=== PATIENT | female | born 1960 | race Caucasian/White ===

== ENCOUNTER 2017-01-03 18:52 | Emergency (ER) | payer SELFPAY ==
[2017-01-03 19:58] VITALS: BP 180/86
--- NOTE | 2017-01-03 20:35 | UC ---
Throat Pain/Nasal Luiz HPI - HPI Summary HPI Summary: complaint of nausea and vomiting that started this morning sore throat and very difficult to swallow felt feverish and had chills today left ear pain intermittent headache took ibuprofen at 1600 with some relief many strep infections in the past with similiar symptoms couldn't take her blood pressure medication this morning d/t vomiting - History of Current Complaint Chief Complaint: UCGeneralIllness Stated Complaint: SORE THROAT Time Seen by Provider: 01/03/17 20:28 Hx Obtained From: Patient - Allergies/Home Medications Allergies/Adverse Reactions: Allergies Allergy/AdvReac Type Severity Reaction Status Date / Time Sulfa Drugs Allergy Hives Verified 01/03/17 19:58 Home Medications: Home Medications Apremilast [Otezla] 1 PO BID 01/03/17 [History] PMH/Surg Hx/FS Hx/Imm Hx Previously Healthy: Yes Endocrine History Of: Denies: Diabetes Cardiovascular History Of: Reports: Hypertension Denies: Congestive Heart Failure Cancer History Of: Denies: Breast Cancer - Surgical History Surgical History: Yes Surgery Procedure, Year, and Place: gallbladder 10/23/11. c section x2. d/C for miscarriage - - Family History Known Family History: Positive: None Negative: Cardiac Disease, Hypertension, Diabetes - Social History Occupation: Unemployed Lives: With Family Alcohol Use: None Substance Use Type: None Smoking Status (MU): Never Smoked Tobacco - Immunization History Most Recent Influenza Vaccination: 2014 Most Recent Tetanus Shot: UTD Review of Systems Constitutional: Fever, Chills Skin: Negative Eyes: Negative ENT: Sore Throat, Ear Ache Respiratory: Negative Cardiovascular: Negative Gastrointestinal: Vomiting Genitourinary: Negative Motor: Negative Neurovascular: Negative Musculoskeletal: Negative Neurological: Negative Psychological: Negative All Other Systems Reviewed And Are Negative: Yes Physical Exam Triage Information Reviewed: Yes Appearance: No Pain Distress, Well-Nourished Vital Signs: Initial Vital Signs Temp 99.4 F 01/03/17 19:52 Pulse 107 01/03/17 19:52 Resp 18 01/03/17 19:52 BP 180/86 01/03/17 19:52 Pulse Ox 96 01/03/17 19:52 Vital Signs Reviewed: Yes Eyes: Positive: Conjunctiva Clear ENT: Positive: Pharyngeal erythema, TMs normal. Negative: Nasal congestion, Nasal drainage Dental: Positive: Cervical Lymphadenopathy Respiratory: Positive: Lungs clear, Normal breath sounds, No respiratory distress Cardiovascular: Positive: RRR, No Murmur, Pulses Normal Abdomen Description: Positive: Nontender, Soft Bowel Sounds: Positive: Present Musculoskeletal: Positive: No Edema Neurological: Positive: Alert Psychological Exam: Normal Skin Exam: Normal Throat Pain/Nasal Course/Dx - Differential Dx/Diagnosis Differential Diagnosis/HQI/PQRI: Pharyngitis, Tonsillitis Provider Diagnoses: strep pharyngitis Discharge - Discharge Plan Condition: Stable Disposition: HOME Prescriptions: Penicillin VK TAB* [Penicillin VK 250 mg Tab*] 500 mg PO TID #30 tab Patient Education Materials: Strep Throat (ED) Referrals: No Primary Care Phys,NOPCP [Primary Care Provider] - [facility] REFERRAL [Outside] Additional Instructions: Your blood pressure is elevated. Please contact your primary care provider within 1 day -4 weeks for further evaluation. Please take antibiotic as directed Increase fluids and rest Take acetaminophen or ibuprofen for fever or pain Please review your discharge instructions. If your symptoms do not improve please call your primary care provider or return to urgent care.
[2017-01-03] MEDS ORDERED: Ibuprofen TAB* 600 MG PO ONE (21:00)
[2017-01-03] MEDS ORDERED: Penicillin VK TAB* 250 MG PO ONE (21:00)
== END 2017-01-03 21:06 | disposition home or self-care (01) ==
LOC: UCEAST 18:52
DX: J02.0 Streptococcal pharyngitis (principal); I10 Essential (primary) hypertension; Z90.49 Acquired absence of other specified parts of digestive tract; Z88.2 Allergy status to sulfonamides
CPT/HCPCS: 87651; 99212; A9270-GY; G0463

== ENCOUNTER 2017-03-16 20:19 | Emergency (ER) | payer OTHER ==
[2017-03-16 23:00] LABS: Hematocrit 43 % (35-47); Hemoglobin 14.1 g/dl (12.0-16.0); Mean Corpuscular HGB Conc 33 g/dl (31-36); Mean Corpuscular Hemoglobin 29 pg (27-31); Mean Corpuscular Volume 89 fL (80-97); Mean Platelet Volume 10 um3 (7.4-10.4); Red Blood Count 4.78 10^6/ul (4.0-5.4); Red Cell Distribution Width 14 % (10.5-15); White Blood Count 11.2 10^3/ul (3.5-10.8)
[2017-03-16 23:14] LABS: Albumin 4.2 g/dL (3.2-5.2); BUN/Creatinine Ratio 15.3 (8-20); Calcium 9.8 mg/dL (8.6-10.3); EGFR African American 88.3 (>60); EGFR Non-African American 68.7 (>60); Globulin 3.6 g/dL (2-4); Potassium 3.9 mmol/L (3.5-5.0); Total Bilirubin 0.5 mg/dL (0.2-1.0); Total Protein 7.8 g/dL (6.4-8.9)
--- NOTE | 2017-03-16 23:27 | ED ---
myron Hart Timothy, scribed for Cachorro Gillis MD on 03/16/17 at 2224 . Neurological HPI - HPI Summary HPI Summary: Ary Holden is a 56 yo female presenting to [facility] with left sided facial droop since 929 this morning. Pt states she saw her PCP yesterday for a sinus issues with left ear pain and watery left eye, and this morning a relative noticed her left side facial droop. Pt reports no other deficits, and per triage has even, steady gait, equal hand decision analyst. She states that she gets strep throat frequently , and currently c/o 3/10 left sided throat and neck pain. her MHx includes frequent strep throat, cholecystectomy, tonsilectomy, C-Seciton x2, HTN, GERD, plaque scoriasis. - History of Current Complaint Chief Complaint: EDNeurologicalDeficit Stated Complaint: LEFT SIDED FACIAL DROOP/UNABLE TO SHUT EYE Time Seen by Provider: 03/16/17 22:22 Hx Obtained From: Patient Onset/Duration: Sudden Onset, Started hours ago Timing: Constant Onset Severity: Moderate Current Severity: Moderate Neurological Deficit Location: Facial Pain Intensity: 3 Pain Scale Used: 0-10 Numeric Character: Other: - facial droop Associated Signs and Symptoms: Positive: Neck Pain/Stiffness - Allergy/Home Medications Allergies/Adverse Reactions: Allergies Allergy/AdvReac Type Severity Reaction Status Date / Time Sulfa Drugs Allergy Hives Verified 01/03/17 19:58 PMH/Surg Hx/FS Hx/Imm Hx Endocrine/Hematology History: Denies: Hx Diabetes Cardiovascular History: Reports: Hx Hypertension Denies: Hx Congestive Heart Failure GI History: Denies: Other GI Disorders - Cancer History Hx Chemotherapy: No Hx Radiation Therapy: No - Surgical History Surgery Procedure, Year, and Place: gallbladder 10/23/11. c section x2. d/C for miscarriage - Infectious Disease History: No Infectious Disease History: Denies: History Other Infectious Disease, Traveled Outside the [place] in Last 30 Days - Family History Known Family History: Positive: None Negative: Cardiac Disease, Hypertension, Diabetes - Social History Alcohol Use: None Substance Use Type: Reports: None Smoking Status (MU): Never Smoked Tobacco Review of Systems Constitutional: Negative Positive: Sore Throat Cardiovascular: Negative Respiratory: Negative Gastrointestinal: Negative Genitourinary: Negative Musculoskeletal: Negative Skin: Negative Neurological: Other - left side facial droop Psychological: Normal All Other Systems Reviewed And Are Negative: Yes Physical Exam Triage Information Reviewed: Yes Vital Signs On Initial Exam: Initial Vitals Temp Pulse Resp BP Pulse Ox 98.0 F 96 16 158/87 97 03/16/17 20:26 03/16/17 20:26 03/16/17 20:26 03/16/17 20:26 03/16/17 20:26 Vital Signs Reviewed: Yes Appearance: Positive: Well-Appearing, No Pain Distress Skin: Positive: Warm Head/Face: Positive: Other - lt facial paralysis Eyes: Positive: EOMI, ALFREDITO, Other: - unable to fully close lt eye ENT: Positive: Hearing grossly normal Neck: Positive: Supple Respiratory/Lung Sounds: Positive: Clear to Auscultation, Breath Sounds Present Cardiovascular: Positive: RRR Neurological: Positive: Alert, Oriented to Person Place, Time, Normal Gait, Facial Droop - lt, Speech Normal Psychiatric: Positive: Affect/Mood Appropriate - Ayden Coma Scale Coma Scale Total: 15 Diagnostics - Vital Signs Vital Signs Temp Pulse Resp BP Pulse Ox 03/16/17 22:05 99.1 F 89 16 146/81 98 03/16/17 20:26 98.0 F 96 16 158/87 97 - Laboratory Lab Results: Lab Results 03/16/17 03/16/17 Range/Units 22:55 22:55 WBC 11.2 H (3.5-10.8) 10^3/ul RBC 4.78 (4.0-5.4) 10^6/ul Hgb 14.1 (12.0-16.0) g/dl Hct 43 (35-47) % MCV 89 (80-97) fL MCH 29 (27-31) pg MCHC 33 (31-36) g/dl RDW 14 (10.5-15) % Plt Count 261 (150-450) 10^3/ul MPV 10 (7.4-10.4) um3 Neut % (Auto) 61.6 (38-83) % Lymph % (Auto) 28.8 (25-47) % [place] % (Auto) 6.8 (1-9) % Eos % (Auto) 1.5 (0-6) % Baso % (Auto) 1.3 (0-2) % Absolute Neuts (auto) 6.9 (1.5-7.7) 10^3/ul Absolute Lymphs (auto) 3.2 (1.0-4.8) 10^3/ul Absolute Monos (auto) 0.8 (0-0.8) 10^3/ul Absolute Eos (auto) 0.2 (0-0.6) 10^3/ul Absolute Basos (auto) 0.1 (0-0.2) 10^3/ul Absolute Nucleated RBC 0.01 10^3/ul Nucleated RBC % 0.1 Sodium 138 (133-145) mmol/L Potassium 3.9 (3.5-5.0) mmol/L Chloride 103 (101-111) mmol/L Carbon Dioxide 26 (22-32) mmol/L Anion Gap 9 (2-11) mmol/L BUN 13 (6-24) mg/dL Creatinine 0.85 (0.51-0.95) mg/dL Est GFR ( Amer) 88.3 (>60) Est GFR (Non-Af Amer) 68.7 (>60) BUN/Creatinine Ratio 15.3 (8-20) Glucose 115 H (70-100) mg/dL Calcium 9.8 (8.6-10.3) mg/dL Total Bilirubin 0.50 (0.2-1.0) mg/dL AST 40 H (13-39) U/L ALT 43 (7-52) U/L Alkaline Phosphatase 75 (34-104) U/L Total Protein 7.8 (6.4-8.9) g/dL Albumin 4.2 (3.2-5.2) g/dL Globulin 3.6 (2-4) g/dL Albumin/Globulin Ratio 1.2 (1-3) Result Diagrams: 03/16/17 22:55 03/16/17 22:55 Lab Statement: Any lab studies that have been ordered have been reviewed, and results considered in the medical decision making process. - CT brain CT Interpretation: No Acute Changes - IMPRESSION: No evidence of acute pathology CT Interpretation Completed By: Radiologist - Imaging Receiving Room Clerk NIH Scale - NIH Scale Level of Consciousness: Alert/Keenly Responsive Ask Patient the Month and His/Her Age: Both Correct Ask Pt to Open/Close Eyes and Spinning Lathe Operator Hydraulic/Release Non-Paretic Hand: Both Correctly Best Gaze (Only Horizontal Eye Movement): Normal Visual Field Testing: No Visual Loss Facial Paresis-Pt to Smile & Close Eyes or Grimace Symmetry: Partial Paralysis Motor Function - Right Arm: No Drift-Holds 10 Seconds Motor Function - Left Arm: No Drift-Holds 10 Seconds Motor Function - Right Leg: No Drift-Holds 10 Seconds Motor Function - Left Leg: No Drift-Holds 10 Seconds Limb Ataxia-Must be out of Proportion to Weakness Present: Absent Sensory (Use Pinprick to Test Arms/Legs/Trunk/Face): Pinprick Less on Affected Best Language (Describe Picture, Name Items): No Aphasia Dysarthria (Read Several Words): Normal Extinction and Inattention: No Abnormality Total Score: 3 Re-Evaluation - Re-Evaluation First Eval Re-Evaluation Time: 23:31 Change: Unchanged Comment: Discussed lab and imaging study results with Pt. She is agreable to be discharged. Course/Dx - Course Assessment/Plan: Bessie Holden is a 56 yo female presenting to [facility] with left sided facial droop and 3/10 sore throat andneck pain since 0930 this morning. Pt medicaiton list is reviewed this visit. Her CT Brain suggests no evidence of acute pathology. 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 - Differential Dx Differential Diagnoses Neuro: Positive: Kaye's Palsy - Diagnoses Provider Diagnoses: Kaye's palsy Discharge - Discharge Plan Condition: Stable Disposition: HOME Prescriptions: Artificial Tears* 15 ML BTL [Polyvinyl Alcohol 1.4% OPTH*] 1 drop RIGHT EYE Q2H #1 btl predniSONE TAB* [Deltasone TAB*] 40 mg PO DAILY #8 tab Patient Education Materials: Kaye Palsy (ED) Referrals: Frances Tyler MD [Primary Care Provider] - 2 Days Additional Instructions: Please follow up with your primary care physician regarding your visit to the emergency department today. Return to the emergency department with any new or recurring symptoms. The documentation as recorded by the myron gonzalez Timothy accurately reflects the service I personally performed and the decisions made by me, Cachorro Gillis MD.
[2017-03-16] MEDS ORDERED: predniSONE TAB* 20 MG PO ONE (23:29)
[2017-03-16 23:43] VITALS: BP 144/60
--- NOTE | 2017-03-17 07:19 | RAD ---
INDICATION: Left-sided facial droop COMPARISON: None. TECHNIQUE: Contiguous axial sections of the brain were obtained from the skull base to the vertex without contrast. FINDINGS: The ventricles, cisterns and sulci are within normal limits. The benitez-white matter differentiation is adequately maintained and there is no sulcal effacement. No significant focal abnormality or mass effect is present. There is no evidence for intracranial hemorrhage. No significant focal osseous abnormality is present. The visualized portion of the paranasal sinuses and mastoid air cells appear clear. IMPRESSION: Normal CT of the brain.
== END 2017-03-16 23:45 | disposition home or self-care (01) ==
LOC: ED 20:19
DX: G51.0 Bell's palsy (principal); J02.9 Acute pharyngitis, unspecified
CPT/HCPCS: 36415; 70450; 80053; 85025; 86618; 99283; J7512

== ENCOUNTER 2018-04-24 06:33 | Inpatient (IN) | payer OTHER ==
--- NOTE | 2018-04-16 13:51 | HP ---
HISTORY AND PHYSICAL: DATE OF ADMISSION/SURGERY: 04/24/18 DATE OF OFFICE VISIT: 04/16/18 SURGEON: Julieta Sheth MD * (DICTATED BY KAILEE CHRISTENSEN) PROCEDURE: Right total knee arthroplasty. CHIEF COMPLAINT: Right knee pain. HISTORY OF PRESENT ILLNESS: Ms. Holden is a 57-year-old female with complaints of right knee pain. She has failed conservative treatment and elected to proceed with a right total knee arthroplasty, which is scheduled for 04/24/[address] Sheth. PAST MEDICAL HISTORY: Psoriasis, hypertension, and gout. PAST SURGICAL HISTORY: x2, cholecystectomy, and tonsillectomy. CURRENT MEDICATIONS: 1. Pantoprazole 20 mg daily. 2. Lisinopril 20 mg daily. ALLERGIES: To SULFA. FAMILY HISTORY: Kidney and colon cancer, thyroid disease, heart disease, hypertension. SOCIAL HISTORY: She is a 57-year-old female, who lives with her partner. Does not smoke, use drugs or alcohol. REVIEW OF SYSTEMS: A complete 14-point review of systems was reviewed with the patient. It was all negative and noncontributory. She denies history of DVT, PE, hepatitis, HIV, or anesthesia problems. PHYSICAL EXAMINATION GENERAL: Well developed, well nourished, no acute distress. VITAL SIGNS: She stands 5 feet 2 inches tall, weighs 245 pounds. Blood pressure 144/88, heart rate 72. HEENT: Normocephalic, atraumatic. NECK: Supple. No palpable lymph nodes. PULMONARY: Lungs are clear to auscultation bilaterally. CARDIO: Regular rate and rhythm. Strong S1, S2. ABDOMEN: Soft, nontender, nondistended. MUSCULOSKELETAL: Right lower extremity, the skin is intact. There are no open wounds or abrasions. There is a moderate joint effusion. She has some tenderness over the medial and lateral joint line. Range of motion is 10 to 130 degrees of flexion with patellofemoral crepitus. 5/5 lower extremity strength. 2+ dorsalis pedis pulses and intact sensation. NEUROLOGICAL: She is alert and oriented x3. ASSESSMENT AND PLAN: Ms. Holden is a 57-year-old female with end-stage osteoarthritis of the right knee. She has failed conservative treatment and elected to proceed with a right total knee arthroplasty, which is scheduled for 04/24/[address] Sheth discussed the risks and benefits of the surgery at today's visit and all of her questions were answered. She will follow up with Dr. Sheth 2 weeks after the surgery. KAILEE CHRISTENSEN [id number]/[facility] #: [id number] AV
[~2018-04-24 06:33] MED LIST: Buffered Lidocaine 0.9% SYRIN* 5 ML/SYR SYRINGE INTRADERM ONE
--- OUTSIDE RECORDS SUMMARY | 2018-04-24 06:41 | XMS REPORT ---
:1960 External Reference #:[id number] Author Organization [employer] Address [address] [place] [address] [place] [address] Phone [phone] Care Team Providers Name Role Phone Frances Tyler MD Primary Care Physician Unavailable Payers Type Date Identification Numbers Payment Provider Subscriber Commercial Policy Number: [id number] [employer] Medicaid Ton Holden PayID: [id number] [address] [place] [id number] Problems Date Description Provider Status Onset: 02/14/2018 Localized, primary osteoarthritis Julieta Sheth M.D. Active Family History Date Family Member(s) Problem(s) Comments General Diabetes General Hypertension General Cancer General Rheumatoid Arthritis Social History Type Date Description Comments Lives With Spouse Occupation Retired ETOH Use Never used alcohol Smoking Patient has never smoked Exercise Type/Frequency Does not exercise Allergies, Adverse Reactions, Alerts Date Description Reaction Status Severity Comments 02/14/2018 Sulfa Antibiotics active hives Medications Medication Date Status Form Strength Qnty SIG Indications Ordering Provider Humira / Active PSKT 40mg/0.8ML inject 40 mg Unknown 0000 subcutaneous once every other week prefilled syringe Pantoprazole / Active Tablets 20mg 1 by mouth Unknown Sodium 0000 DR every day Lisinopril 0000/ Active Tablets 20mg 1 by mouth Unknown 0000 every day Ibuprofen 00/ Active Tablets 600mg prn pain Unknown 0000 Medications Administered in Office Medication Date Status Form Strength Qnty SIG Indications Ordering Provider Depomedrol Administered Injection Julieta 40MG Cesar Sheth M.D. Vital Signs Date Vital Result Comment 04/16/2018 Height 62 inches 5'2" Weight 245.00 lb Heart Rate 72 /min BP Systolic 144 mmHg BP Diastolic 88 mmHg BMI (Body Mass Index) 44.8 kg/m2 02/28/2018 Height 62 inches 5'2" Weight 242.00 lb BP Systolic 170 mmHg BP Diastolic 84 mmHg Body Temperature 98.3 F BMI (Body Mass Index) 44.3 kg/m2 02/14/2018 Height 62 inches 5'2" Weight 245.00 lb Heart Rate 80 /min BP Systolic 160 mmHg BP Diastolic 80 mmHg BMI (Body Mass Index) 44.8 kg/m2 Results Test Date Test Result H/L Range Note CBC Auto Diff 04/16/2018 White Blood Count 6.7 10^3/uL 3.5-10.8 1 Red Blood Count 4.54 10^6/uL 4.00-5.40 1 Hemoglobin 13.9 g/dL 12.0-16.0 1 Hematocrit 42 % 35-47 1 Mean Corpuscular Volume 92 fL 80-97 1 Mean Corpuscular Hemoglobin 31 pg 27-31 1 Mean Corpuscular HGB Conc 34 g/dL 31-36 1 Red Cell Distribution Width 14 % 10.5-15 1 Platelet Count 260 10^3/uL 150-450 1 Mean Platelet Volume 10.0 um3 7.4-10.4 1 Abs Neutrophils 3.3 10^3/uL 1.5-7.7 1 Abs Lymphocytes 2.7 10^3/uL 1.0-4.8 1 Abs Monocytes 0.5 10^3/uL 0-0.8 1 Abs Eosinophils 0.3 10^3/uL 0-0.6 1 Abs Basophils 0 10^3/uL 0-0.2 1 Abs Nucleated RBC 0 10^3/uL 1 Granulocyte % 49.1 % 38-83 1 Lymphocyte % 39.3 % 25-47 1 Monocyte % 7.3 % High 0-7 1 Eosinophil % 3.8 % 0-6 1 Basophil % 0.5 % 0-2 1 Nucleated Red Blood Cells % 0.1 1 Inr/Protime 04/16/2018 Inr 0.88 0.77-1.02 1 Laboratory test finding 04/16/2018 Partial Thrombo Time 32.0 seconds 26.0 -36.3 1, 2 PTT Comp Metabolic Panel 04/16/2018 Sodium 141 mmol/L 135-145 1 Potassium 4.3 mmol/L 3.5-5.0 1 Chloride 105 mmol/L 101-111 1 Co2 Carbon Dioxide 29 mmol/L 22-32 1 Anion Gap 7 mmol/L 2-11 1 Glucose 92 mg/dL 70-100 1 Blood Urea Nitrogen 12 mg/dL 6-24 1 Creatinine 0.66 mg/dL 0.51-0.95 1 BUN/Creatinine Ratio 18.2 8-20 1 Calcium 9.4 mg/dL 8.6-10.3 1 Total Protein 7.4 g/dL 6.4-8.9 1 Albumin 4.2 g/dL 3.2-5.2 1 Globulin 3.2 g/dL 2-4 1 Albumin/Globulin Ratio 1.3 1-3 1 Total Bilirubin 0.60 mg/dL 0.2-1.0 1 Alkaline Phosphatase 92 U/L 34-104 1 Alt 40 U/L 7-52 1 Ast 35 U/L 13-39 1 Egfr Non- 91.7 >60 1 Egfr 110.9 >60 1, 3 Urinalysis Profile 04/16/2018 Urine Color Yellow 1 Urine Appearance Clear 1 Urine Specific [place] 1.008 Low 1.010-1.030 1 Urine pH 6.0 5-9 1 Urine Urobilinogen Negative Negative 1 Urine Ketones Negative Negative 1 Urine Protein Negative Negative 1 Urine Leukocytes Negative Negative 1 Urine Blood 1+ Negative 1 Urine Nitrite Negative Negative 1 Urine Bilirubin Negative Negative 1 Urine Glucose Negative Negative 1 Urine White Blood Cell Trace(0-5/hpf) Absent 1 Urine Red Blood Cell Trace(0-2/hpf) Absent 1 Urine Bacteria 1+ Absent 1 Urine Squamous Epithelial Cell Present Absent 1 Type & Screen 04/16/2018 Patient Blood Type O Positive 1 Antibody Screen NEGATIVE 1 Urine Culture And Sensitivities 04/16/2018 Urine Culture SEE RESULT BELOW 1, 4 1 AA 04/24 2 AA 04/24 3 Because ethnic data is not always readily available, this report includes an eGFR for both -Americans and non- Americans. The National Kidney Disease Education Program (NKDEP) does not endorse the use of the MDRD equation for patients that are not between the ages of 18 and 70, are , have extremes of body size, muscle mass, or nutritional status, or are non- or non-. According to the National Kidney Foundation, irrespective of diagnosis, the stage of the disease is based on the level of kidney function: Stage Description GFR(mL/min/1.73 m(2)) 1 Kidney damage with normal or decreased GFR 90 2 Kidney damage with mild decrease in GFR 60-89 3 Moderate decrease in GFR 30-59 4 Severe decrease in GFR 15-29 5 Kidney failure <15 (or dialysis) 4 SEE RESULT BELOW Name: CANDYTON POPE : [address]: Julieta Sheth MD Acct: [id number] Unit: [id number] AGE: 57 Location: [facility] Re04/16/18 SEX: F Status: REG REF SPEC: [id number] JYOTHI: 04/16/18-1243 [facility] [address]: Julieta Sheth MD REQ: [id number] RECD: 04/16/18 STATUS: LESLY KIM DR: Frances Tyler MD _ SOURCE: URINE SPDESC: ORDERED: Urine Culture COMMENTS: YOAV 04/24 QUERIES: Urine Source: Clean Catch Procedure Result Reported Site Urine Culture Final 04/17/18- 1314 ML No Growth (<1,000 CFU/mL) * ML - Main Lab . END OF REPORT DEPARTMENT OF PATHOLOGY, [address] [place] [address] Marck Dunlap M.D. Director [facility] # [id number] Procedures Date CPT Code Description Status 04/10/2018 84778 Colonoscopy Flexible W/Biopsy Completed 04/10/2018 Colonoscopy Completed 02/14/2018 20866 Inject/Drain Joint/Bursa Major W/O US Completed Encounters Type Date Location Provider CPT E/M Dx Office Visit 02/28/2018 [facility] M.D. 31695 M17.11 1:15p Cornelia.M.ASidney M21.161 M25.561 M25.461 Office Visit 02/14/2018 9:30a [facility] Sheth M.D. 08234 M17.11 C.M.ASidney M21.161 M25.561 M25.461 Plan of Care Future Appointment(s):05/07/2018 9:00 am - Julieta Sheth M.D. at [facility]04/24/2018 8:30 am - Franki Kimball PA-C at [facility]04/24/2018 8:30 am - KAILEE Longo at [facility].04/24/2018 8:30 am - Julieta Sheth M.D. at [facility]..04/16/2018 - Julieta Sheth M.D.M17.11 Unilateral primary osteoarthritis, right kneeFollow up:Follow up: 2 weeks after cedssmnK28.161 Varus deformity, not elsewhere classified, right kneeM25.561 Pain in right kneeM25.461 Effusion, right knee
--- OUTSIDE RECORDS SUMMARY | 2018-04-24 06:41 | XMS REPORT ---
:1960 External Reference #:[id number] Author Organization [employer] Address [address] [place] [address] [place] [address] Phone [phone] Care Team Providers Name Role Phone Frances Tyler MD Primary Care Physician Unavailable Payers Type Date Identification Numbers Payment Provider Subscriber Commercial Policy Number: [id number] [employer] Medicaid Bessie Holden PayID: [id number] [address] [place] [address] Problems Date Description Provider Status Onset: 02/14/2018 [...] BMI (Body Mass Index) 44.8 kg/m2 Results Description No Information Procedures Date CPT Code Description Status 04/10/2018 Colonoscopy Completed 02/14/2018 88986 Inject/Drain Joint/Bursa Major W/O US Completed Encounters Type Date Location Provider CPT E/M Dx Office Visit 02/28/2018 [facility] M.D. 59265 M17.11 1:15p [facility] M21.161 M25.561 M25.461 Office Visit 02/14/2018 9:30a [facility] M.D. 06948 M17.11 [facility] M21.161 M25.561 M25.461 Plan of Care Future Appointment(s):05/07/2018 9:00 am - Julieta Sheth M.D. at [facility]04/24/2018 8:30 am - Franki Kimball PA-C at [facility]04/24/2018 8:30 am - KAILEE Longo at [facility]04/24/2018 8:30 am - Julieta Sheth M.D. at [facility]04/16/2018 - Julieta Sheth M.D.M17.11 Unilateral primary osteoarthritis, right kneeFollow up:Follow up: 2 weeks after weyeajoY47.161 Varus deformity, not elsewhere classified, right kneeM25.561 Pain in right kneeM25.461 Effusion, right knee
--- OUTSIDE RECORDS SUMMARY | 2018-04-24 06:42 | XMS REPORT ---
:1960 External Reference #:[id number] Author Organization [facility] Address [address] [place] [address] Phone [phone] Care Team Providers Name Role Phone Frances Tyler M.D. 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 Primary Care Physician Unavailable Payers Type Date Identification Numbers Payment Provider Subscriber Medicaid Effective: Policy Number: [id number] [facility] Ton Holden 2008 PayID: [id number] [address] [address] [place] [address] Problems Date Description Provider Status Onset: 04/24/2008 History of polyp of colon Josh Spangler M.D. Active Onset: 09/08/2011 Essential hypertension Josh Spangler M.D. Active Onset: 09/08/2011 Hyperlipidemia Josh Spangler M.D. Active Onset: 09/08/2011 Obesity Josh Spangler M.D. Active Onset: 09/08/2011 Liver function tests abnormal Josh Spangler M.D. Active Onset: 02/18/2015 Impaired fasting glycaemia Frances Tyler M.D. Active Onset: 07/27/2015 Gastroesophageal reflux disease Frances Tyler M.D. Active Onset: 06/07/2017 Localized, primary osteoarthritis Frances Tyler M.D. Active Onset: 03/06/2018 Non-alcoholic fatty liver Frances Tyler M.D. Active Onset: 04/04/2018 Psoriasis Frances Tyler M.D. Active Onset: 03/14/2018 Nonalcoholic steatohepatitis Frances Tyler M.D. Active Onset: 08/22/2012 Acute upper respiratory infection Dick Torres M.D. Resolved Resolved: 02/18/2015 Onset: 09/08/2011 Leukocytosis Josh Spangler M.D. Resolved Resolved: 07/27/2015 Family History Date Family Member(s) Problem(s) Comments General sister of colon cancer; diabetes mellitus on her mother's side; maternal grandmother with osteoporosisgilbert disease Father Cancer face/tongue Father due to Cancer () Mother Hypothyroidism Mother Cancer Renal Mother Diabetes Mellitus, II First Brother Chronic Obstructive Pulmonary Disease (COPD) First Brother Hypertension Second Brother Hypertension Second Brother Diabetes Mellitus, II First Sister due to Colon Cancer () - 44 Second Sister Cirrhosis Second Sister Diabetes Mellitus, II Second Sister Venous Insuffiency Third Sister No Current Problems Fourth Sister Hypertension Social History Type Date Description Comments Living Situation Lives with male partner Diet irregular; occasional skips meals; eats easy meals 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 please provide size to patient that fits Clobetasol 11/25/ Active Cream 0.05% 60gm apply to L40.8 Frances Propionate 2017 affected [place], areas M.D. twice a day as needed Lisinopril 07/27/ Active Tablets 20mg 30tab 1 by I10 Frances 2015 s mouth [place], every day M.D. Pantoprazole 03/06/ Active Tablets DR 20mg 30tab 1 by K21.9 Frances Sodium 2014 s mouth [place], every day M.D. Ibuprofen 07/24/ Active Tablets 600mg 60tab take 1 M25.569 Frances 2013 s tablet by [place], mouth M.D. every 6 hours if needed with food Humira 00/00/ Active PSKT 40mg/0.8M inject sq Unknown 0000 L every other week Penicillin V 01/25/ Hx Tablets 500mg 21tab three J02.9 Katina Potassium 2018 - s times a Caryn, 02/05/ day [employer] 2017 Loratadine-D 03/15/ Hx Tablets ER 10-240mg 30tab 1 tab at H69.92 Frances 24HR 2017 - 24HR s bedtime [place], 02/05/ M.D. 2017 Clobetasol 11/17/ Hx Foam 0.05% 50gm apply to L40.8 Frances Propionate 2017 - scalp [place], 11/25/ twice M.D. 2016 daily until clear then as needed Azithromycin 10/26/ Hx Tablets 250mg 12tab take 2 J06.9 Azalea 2017 - s tablets Erin, 11/09/ by mouth [employer] 2016 x 3d then take 1 tablet daily for next 6 days Cephalexin 09/12/ Hx Capsules 500mg 30cap 1 by L03.032 Alicia Lisa 2015 - s mouth Tamra, 10/26/ three M.D. 2017 times daily . Nystatin 08/09/ Hx Cream [id number] 30gm use as 112.3 Frances 2015 - t/GM directed [place], 09/12/ twice a M.D. 2015 day as needed Otezla 07/28/ Hx Tablets 30mg 1 pom bid Unknown 2015 - 2017 Ciprofloxacin 06/03/ Hx Tablets 250mg 14tab 1 tab by N39.0 Azalea HCL 2016 - s mouth Erin, 07/27/ twice a [employer] 2015 day x 7 days Cheratussin ac 11/19/ Hx Syrup 100-10mg/ 120ml 1-2 R05 Azalea 2016 - 5ML teaspoon Erin, 01/24/ every 4 [employer] 2016 hours as needed Azithromycin 11/19/ Hx Tablets 250mg 6tabs take 2 R05 Azalea 2015 - tablets Erin, 01/24/ by mouth [employer] 2015 today then take 1 tablet daily for next 4 days Clobetasol 10/26/ Hx Foam 0.05% 100gm apply to L40.8 Frances Propionate 2016 - scalp [place], Emollient 09/12/ twice a M.D. 2015 day until clears Clobetasol 03/06/ Hx Foam 0.05% 50gm apply to L40.8 Betina Propionate 2014 - scalp Brown, [employer] 09/12/ twice 2016 daily until clear then as needed Clobetasol 03/06/ Hx Cream 0.05% 60gm apply L40.8 Frances Propionate 2014 - thin [place], 10/26/ layer to M.D. 2016 affected area twice a day until clear and as needed Physical 02/18/ Hx evaluate 719.46 Frances Therapy 2014 - and treat [place], 04/16/ r knee M.D. 2014 pain Nystatin 01/22/ Hx Cream [id number] 30gm use as 112.3 Frances 2015 - t/GM directed [place], 11/19/ twice a M.D. 2016 day as needed Fluconazole 01/22/ Hx Tablets 150mg 2tabs one tab 112.3 Frances 2014 - by mouth [place], 02/18/ once, january M.D. 2014 repeat in five days Tramadol HCL 01/22/ Hx Tablets 50mg 60tab 1 tab by 719.46 Frances 2014 - s mouth [place], 04/16/ every 8 M.D. 2015 hours as needed Robitussin A-C 08/22/ Hx 6Floz 1-2 tsp Dick Chavez 2011 - q4hrs prn [place], 10/10/ cough M.D. 2012 Lisinopril 08/03/ Hx Tablets 10mg 30tab take 1 I10 Josh Torres 2010 - s tablet [place], 07/27/ once M.D. 2016 daily Azithromycin 11/05/ Hx Tablets 250mg 6tabs take 2 466.0 Azalea 2010 - tablets Erin, 08/03/ by mouth [employer] 2010 today then take 1 tablet daily for next 4 days Robitussin A-C 11/05/ Hx 120ml 1-2 tsp 466.0 Azalea 2010 - po q4h Erin, 08/03/ prn cough [employer] 2010 Augmentin 03/31/ Hx Tablets 875mg 20tab 1 po bid Edilberto Ron 2008 - s with food [place], 11/05/ M.D. 2010 Cortisporin Hx Suspension 1% Otic 1Bott 3-5 gtts Edilberto Ron 2009 - le rt ear [place], 11/05/ qid M.D. 2010 Immunizations CPT Code Status Date Vaccine Lot # [id number] Given 06/07/2017 Influenza Vac, Quadrivalent, Slit Virus, Im [id number] 70744 Given 07/27/2016 Influenza Vac, Quadrivalent, Slit Virus, Im [id number] 24531 Given 07/27/2015 Influenza Vac, Quadrivalent, Slit Virus, Im [id number] Given 07/24/2014 DO Not Use Split Influenza Virus Vaccine [id number] Given 10/10/2012 DO Not Use Split Influenza Virus Vaccine [id number] 80037 Given 08/03/2011 DO Not Use Split Influenza Virus Vaccine [id number] 21100 Given 04/24/2008 Tdap Tetanus, W Pertussis [id number] Vital Signs Date Vital Result Comment 04/04/2018 BP Systolic 136 mmHg BP Diastolic 80 mmHg Heart Rate 82 /min Body Temperature 97.5 F Respiratory Rate 16 /min Height 62 inches 5'2" meaured Weight 242.00 lb BMI (Body Mass Index) 44.3 kg/m2 03/14/2018 BP Systolic 130 mmHg BP Diastolic 82 mmHg Heart Rate 72 /min Body Temperature 97.9 F Respiratory Rate 16 /min Height 62 inches 5'2" Weight 242.00 lb BMI (Body Mass Index) 44.3 kg/m2 02/06/2018 BP Systolic 146 mmHg BP Diastolic 94 mmHg Heart Rate 90 /min Body Temperature 98.1 F Height 62 inches 5'2" Weight 243.00 lb BMI (Body Mass Index) 44.4 kg/m2 10/19/2017 BP Systolic 134 mmHg BP Diastolic 88 mmHg Heart Rate 96 /min Body Temperature 101.4 F Height 62 inches 5'2" Weight 237.25 lb BMI (Body Mass Index) 43.4 kg/m2 06/07/2017 BP Systolic 130 mmHg BP Diastolic 78 mmHg Heart Rate 76 /min Body Temperature 98.0 F Respiratory Rate 18 /min Height 62 inches 5'2" Weight 222.00 lb BMI (Body Mass Index) 40.6 kg/m2 03/22/2017 BP Systolic 170 mmHg BP Diastolic 100 mmHg BP Systolic Recheck 150 mmHg BP Diastolic Recheck 80 mmHg Heart Rate 84 /min Body Temperature 98.1 F Height 62 inches 5'2" Weight 231.38 lb BMI (Body Mass Index) 42.3 kg/m2 03/15/2017 BP Systolic 142 mmHg BP Diastolic 80 mmHg Heart Rate 76 /min Body Temperature 98.6 F Respiratory Rate 18 /min Height 62 inches 5'2" Weight 233.38 lb BMI (Body Mass Index) 42.7 kg/m2 01/25/2017 BP Systolic 132 mmHg BP Diastolic 86 mmHg Heart Rate 78 /min Body Temperature 97.7 F Respiratory Rate 16 /min Height 62 inches 5'2" Weight 231.38 lb BMI (Body Mass Index) 42.3 kg/m2 10/26/2016 BP Systolic 122 mmHg BP Diastolic 64 mmHg Heart Rate 84 /min Body Temperature 98.1 F Respiratory Rate 16 /min Height 62 inches 5'2" Weight 231.00 lb BMI (Body Mass Index) 42.2 kg/m2 09/12/2016 BP Systolic 158 mmHg BP Diastolic 88 mmHg Heart Rate 60 /min Body Temperature 98.4 F Respiratory Rate 16 /min Height 62 inches 5'2" Weight 235.00 lb BMI (Body Mass Index) 43.0 kg/m2 07/27/2016 BP Systolic 152 mmHg BP Diastolic 90 mmHg Heart Rate 84 /min Body Temperature 98.2 F Respiratory Rate 18 /min Height 62 inches 5'2" Weight 236.00 lb BMI (Body Mass Index) 43.2 kg/m2 06/03/2016 BP Systolic 120 mmHg BP Diastolic 80 mmHg Heart Rate 80 /min Body Temperature 98.6 F Respiratory Rate 18 /min Height 62 inches 5'2" Weight 232.00 lb BMI (Body Mass Index) 42.4 kg/m2 01/25/2016 BP Systolic 136 mmHg BP Diastolic 80 mmHg Heart Rate 72 /min Body Temperature 98.1 F Respiratory Rate 16 /min Height 62 inches 5'2" Weight 237.00 lb BMI (Body Mass Index) 43.3 kg/m2 11/19/2015 BP Systolic 140 mmHg BP Diastolic 80 mmHg Heart Rate 62 /min Body Temperature 97.7 F Respiratory Rate 20 /min Height 62 inches 5'2" Weight 237.00 lb BMI (Body Mass Index) 43.3 kg/m2 07/27/2015 BP Systolic 130 mmHg BP Diastolic 80 mmHg Heart Rate 80 /min Body Temperature 97.7 F Respiratory Rate 16 /min Height 62 inches 5'2" Weight 238.00 lb BMI (Body Mass Index) 43.5 kg/m2 04/16/2015 BP Systolic 120 mmHg BP Diastolic 84 mmHg Heart Rate 72 /min Body Temperature 98.0 F Respiratory Rate 16 /min Height 62 inches 5'2" Weight 232.00 lb BMI (Body Mass Index) 42.4 kg/m2 03/06/2015 BP Systolic 136 mmHg BP Diastolic 80 mmHg Heart Rate 76 /min Body Temperature 97.8 F Respiratory Rate 18 /min Height 62 inches 5'2" Weight 235.00 lb BMI (Body Mass Index) 43.0 kg/m2 02/18/2015 BP Systolic 142 mmHg BP Diastolic 82 mmHg Heart Rate 72 /min Body Temperature 97.8 F Respiratory Rate 16 /min Height 62 inches 5'2" Weight 235.38 lb BMI (Body Mass Index) 43.0 kg/m2 01/22/2015 BP Systolic 128 mmHg BP Diastolic 68 mmHg Heart Rate 78 /min Body Temperature 97.7 F Respiratory Rate 18 /min Height 62 inches 5'2" Weight 239.00 lb BMI (Body Mass Index) 43.7 kg/m2 07/24/2014 BP Systolic 120 mmHg BP Diastolic 66 mmHg Heart Rate 78 /min Body Temperature 98.0 F Respiratory Rate 16 /min Height 62 inches 5'2" Weight 231.00 lb BMI (Body Mass Index) 42.2 kg/m2 01/07/2013 BP Systolic 126 mmHg BP Diastolic 90 mmHg Heart Rate 72 /min Body Temperature 98.3 F Respiratory Rate 16 /min Height 62 inches 5'2" Weight 222.00 lb BMI (Body Mass Index) 40.6 kg/m2 11/27/2012 BP Systolic 110 mmHg BP Diastolic 60 mmHg Heart Rate 76 /min Body Temperature 98.6 F Height 62 inches 5'2" Weight 214.00 lb BMI (Body Mass Index) 39.1 kg/m2 10/10/2012 BP Systolic 130 mmHg BP Diastolic 80 mmHg Heart Rate 80 /min Body Temperature 97.5 F Respiratory Rate 16 /min Height 62 inches 5'2" Weight 214.00 lb BMI (Body Mass Index) 39.1 kg/m2 08/22/2012 BP Systolic 130 mmHg BP Diastolic 82 mmHg Heart Rate 84 /min Body Temperature 99.5 F Height 62 inches 5'2" Weight 210.00 lb BMI (Body Mass Index) 38.4 kg/m2 09/08/2011 BP Systolic 156 mmHg BP Diastolic 80 mmHg Heart Rate 76 /min Body Temperature 97.1 F Respiratory Rate 20 /min Height 62 inches 5'2" Weight 226.00 lb BMI (Body Mass Index) 41.3 kg/m2 08/03/2011 BP Systolic 146 mmHg BP Diastolic 100 mmHg Heart Rate 84 /min Height 62 inches 5'2" Weight 229.00 lb BMI (Body Mass Index) 41.9 kg/m2 11/05/2010 BP Systolic 136 mmHg BP Diastolic 98 mmHg Heart Rate 96 /min Body Temperature 101.3 F Respiratory Rate 20 /min O2 % BldC Oximetry 94 % Height 62 inches 5'2" Weight 222.00 lb BMI (Body Mass Index) 40.6 kg/m2 03/31/2009 BP Systolic 136 mmHg BP Diastolic 100 mmHg Heart Rate 90 /min Body Temperature 100.1 F Height 62 inches 5'2" Weight 218.00 lb BMI (Body Mass Index) 39.9 kg/m2 06/25/2008 BP Systolic 130 mmHg BP Diastolic 84 mmHg Height 62 inches 5'2" Weight 210.00 lb BMI (Body Mass Index) 38.4 kg/m2 06/09/2008 BP Systolic 148 mmHg BP Diastolic 100 mmHg Heart Rate 64 /min Height 62 inches 5'2" Weight 212.00 lb BMI (Body Mass Index) 38.8 kg/m2 04/24/2008 BP Systolic 130 mmHg BP Diastolic 88 mmHg Heart Rate 76 /min Body Temperature 97.9 F Respiratory Rate 16 /min Height 62 inches 5'2" Weight 210.00 lb BMI (Body Mass Index) 38.4 kg/m2 Results Test Date Test Result H/L Range Note Comprehensive Metabolic Prof 03/14/2018 Sodium 138 mEq/L 134-149 Potassium 4.9 mEq/L 3.6-5.5 Chloride 101 mEq/L 94-112 Carbon Dioxide 28 mEq/L 21-32 Glucose 102 mg/dL 70-105 BUN 16 mg/dL 6-26 Creatinine 0.6 mg/dL 0.6-1.4 BUN/Creat Ratio 26.7 CALC 8.0-36.0 Calcium 9.6 mg/dL 8.6-10.2 Total Protein 7.8 g/dL 6.4-8.3 Albumin 4.3 g/dL 3.8-5.5 Globulin 3.5 g/dL 2.0-4.8 A/G Ratio 1.2 CALC 0.6-2.3 Alk. Phosphatase 88 U/L 30-110 Alt (SGPT) 54 U/L High 7-35 Ast (Sgot) 45 U/L High 5-34 Total Bilirubin 0.4 mg/dL 0.2-1.3 GFR Non- >60 ml/min/1.73m^ >=60 GFR >60 ml/min/1.73m^ >=60 Laboratory test finding 03/14/2018 Hemoglobin A1c (Fma) 6.3 % High 4.1- 5.7 Comprehensive Metabolic Prof 02/05/2018 Sodium 138 mEq/L 134-149 Potassium 4.5 mEq/L 3.6-5.5 Chloride 106 mEq/L 94-112 Carbon Dioxide 23 mEq/L 21-32 Glucose 141 mg/dL High 70-105 1 BUN 13 mg/dL 6-26 Creatinine 0.6 mg/dL 0.6-1.4 BUN/Creat Ratio 21.7 CALC 8.0-36.0 Calcium 9.0 mg/dL 8.6-10.2 Total Protein 7.2 g/dL 6.4-8.3 Albumin 4.1 g/dL 3.8-5.5 Globulin 3.1 g/dL 2.0-4.8 A/G Ratio 1.3 CALC 0.6-2.3 Alk. Phosphatase 79 U/L 30-110 Alt (SGPT) 64 U/L High 7-35 Ast (Sgot) 58 U/L High 5-34 Total Bilirubin 0.6 mg/dL 0.2-1.3 GFR Non- >60 ml/min/1.73m^ >=60 GFR >60 ml/min/1.73m^ >=60 Lipid Profile 02/05/2018 Cholesterol 213 mg/dL High 120-200 Triglycerides 129 mg/dL 30-200 HDL Cholesterol 61 mg/dL 30-85 LDL (Calculated) 126 CALC 0-129 VLDL Cholesterol 26 mg/dL 0-50 HDL Risk Factor 3.5 CALC 0.0-4.4 Laboratory test finding 02/05/2018 Free T4 0.90 ng/dL 0.75-1.54 TSH 1.97 mIU/L 0.50-6.00 CBC Electronic Fma 02/05/2018 WBC 7.4 x10^3/UL 4.0-10.0 RBC 4.63 x10^6/UL 3.93-6.00 HGB 14.1 g/dL 12.0-17.0 HCT 42 % 35-50 MCV 91.6 fL 80.0-95.0 MCH 30.5 pg 25.6-32.2 MCHC 33.3 g/dL 32.2-36.0 RDW-CV 12.6 % 11.6-14.4 PLT 236 x10^3/UL 163-400 MPV 11.5 fL 9.4-12.4 [place]berly# 3.81 x10^3/UL 1.56-6.13 Lymph# 2.68 x10^3/UL 1.18-3.74 Cole# 0.65 x10^3/UL 0.24-0.82 Eos # 0.2 x10^3/UL 0.0-0.5 Baso # 0.04 x10^3/UL 0.01-0.08 [place]% 51.5 % 34.0-70.0 Lymph % 36.2 % 20.0-52.0 Cole% 8.8 % 5.0-12.0 Eos% 2.7 % 0.7-7.0 Baso% 0.5 % 0.1-1.2 Laboratory test finding 02/05/2018 Hemoglobin A1c (Fma) 6.1 % High 4.1- 5.7 Laboratory test finding 10/19/2017 Quickstrep positive Negative CBC Auto Diff 03/16/2017 White Blood Count 11.2 10^3/uL High 3.5-10.8 Red Blood Count 4.78 10^6/uL 4.0-5.4 Hemoglobin 14.1 g/dL 12.0-16.0 Hematocrit 43 % 35-47 Mean Corpuscular Volume 89 fL 80-97 Mean Corpuscular Hemoglobin 29 pg 27-31 Mean Corpuscular HGB Conc 33 g/dL 31-36 Red Cell Distribution Width 14 % 10.5-15 Platelet Count 261 10^3/uL 150-450 Mean Platelet Volume 10 um3 7.4-10.4 Abs Neutrophils 6.9 10^3/uL 1.5-7.7 Abs Lymphocytes 3.2 10^3/uL 1.0-4.8 Abs Monocytes 0.8 10^3/uL 0-0.8 Abs Eosinophils 0.2 10^3/uL 0-0.6 Abs Basophils 0.1 10^3/uL 0-0.2 Abs Nucleated RBC 0.01 10^3/uL Granulocyte % 61.6 % 38-83 Lymphocyte % 28.8 % 25-47 Monocyte % 6.8 % 1-9 Eosinophil % 1.5 % 0-6 Basophil % 1.3 % 0-2 Nucleated Red Blood Cells % 0.1 Comp Metabolic Panel 03/16/2017 Sodium 138 mmol/L 133-145 Potassium 3.9 mmol/L 3.5-5.0 Chloride 103 mmol/L 101-111 Co2 Carbon Dioxide 26 mmol/L 22-32 Anion Gap 9 mmol/L 2-11 Glucose 115 mg/dL High 70-100 Blood Urea Nitrogen 13 mg/dL 6-24 Creatinine 0.85 mg/dL 0.51-0.95 BUN/Creatinine Ratio 15.3 8-20 Calcium 9.8 mg/dL 8.6-10.3 Total Protein 7.8 g/dL 6.4-8.9 Albumin 4.2 g/dL 3.2-5.2 Globulin 3.6 g/dL 2-4 Albumin/Globulin Ratio 1.2 1-3 Total Bilirubin 0.50 mg/dL 0.2-1.0 Alkaline Phosphatase 75 U/L 34-104 Alt 43 U/L 7-52 Ast 40 U/L High 13-39 Egfr Non- 68.7 >60 Egfr 88.3 >60 2 Laboratory test finding 03/16/2017 Lyme Disease Serology Negative Negative 3 Laboratory test finding 01/25/2017 TSH 1.31 mIU/L 0.50-6.00 Complete Blood Count 01/25/2017 WBC 7.8 x10^3/UL 3.6-9.6 RBC 4.65 x10^6/UL 3.90-5.70 HGB 14.0 g/dL 12.1-17.2 HCT 42 % 36-50 MCV 91.0 fL 82.2-97.4 MCH 30.2 pg 27.6-33.3 MCHC 33.3 g/dL 33.0-35.5 RDW 14.1 % High 11.6-13.7 PLT 341 x10^3/UL 150-400 MPV 8.2 fL 7.4-10.4 Gran # 4.7 x10^3/UL 1.5-7.2 Lymph# 2.7 x10^3/UL 0.7-4.9 Cole# 0.4 x10^3/UL 0.1-0.9 Gran % 59.3 % 42.2-75.2 Lymph % 35.5 % 20.5-51.1 Cole% 5.2 % 1.7-9.3 Lipid Profile 01/25/2017 Cholesterol 214 mg/dL High 120-200 Triglycerides 146 mg/dL 30-200 HDL Cholesterol 63 mg/dL 30-85 LDL (Calculated) 122 CALC 0-129 VLDL Cholesterol 29 mg/dL 0-50 HDL Risk Factor 3.4 CALC 0.0-4.4 Comprehensive Metabolic Prof 01/25/2017 Sodium 138 mEq/L 134-149 Potassium 4.8 mEq/L 3.6-5.5 Chloride 103 mEq/L 94-112 Carbon Dioxide 29 mEq/L 21-32 Glucose 118 mg/dL High 70-105 4 BUN 10 mg/dL 6-26 Creatinine 0.7 mg/dL 0.6-1.4 BUN/Creat Ratio 14.3 CALC 8.0-36.0 Calcium 9.7 mg/dL 8.6-10.2 Total Protein 7.3 g/dL 6.4-8.3 Albumin 4.2 g/dL 3.8-5.5 Globulin 3.1 g/dL 2.0-4.8 A/G Ratio 1.4 CALC 0.6-2.3 Alk. Phosphatase 103 U/L 30-110 Alt (SGPT) 38 U/L High 7-35 5 Ast (Sgot) 34 U/L 5-34 Total Bilirubin 0.3 mg/dL 0.2-1.3 GFR Non- >60 ml/min/1.73m^ >=60 GFR >60 ml/min/1.73m^ >=60 Laboratory test finding 01/25/2017 Hemoglobin A1c (Fma) 6.2 % High 4.1- 5.7 Laboratory test finding 09/13/2016 Antinuclear Negative 6, 7 Antibodies, Ifa Laboratory test finding 09/13/2016 Uric Acid 4.8 mg/dL 2.5-9.2 Comprehensive Metabolic 09/13/2016 Sodium 136 mEq/L 134-149 Prof Potassium 5.2 mEq/L 3.6-5.5 Chloride 95 mEq/L 94-112 Carbon Dioxide 26 mEq/L 21-32 Glucose 100 mg/dL 70-105 BUN 14 mg/dL 6-26 Creatinine 0.8 mg/dL 0.6-1.4 BUN/Creat Ratio 17.5 CALC 8.0-36.0 Calcium 9.6 mg/dL 8.6-10.2 Total Protein 7.6 g/dL 6.4-8.3 Albumin 4.3 g/dL 3.8-5.5 Globulin 3.3 g/dL 2.0-4.8 A/G Ratio 1.3 CALC 0.6-2.3 Alk. Phosphatase 80 U/L 30-110 Alt (SGPT) 34 U/L 7-35 Ast (Sgot) 31 U/L 5-34 Total Bilirubin 0.4 mg/dL 0.2-1.3 GFR Non- >60 ml/min/1.73m^ >=60 GFR >60 ml/min/1.73m^ >=60 Complete Blood Count 09/13/2016 WBC 7.5 x10^3/UL 3.6-9.6 RBC 4.76 x10^6/UL 3.90-5.70 HGB 14.3 g/dL 12.1-17.2 HCT 43 % 36-50 MCV 91.0 fL 82.2-97.4 MCH 30.1 pg 27.6-33.3 MCHC 33.1 g/dL 33.0-35.5 RDW 14.2 % High 11.6-13.7 PLT 289 x10^3/UL 150-400 MPV 8.0 fL 7.4-10.4 Gran # 4.4 x10^3/UL 1.5-7.2 Lymph# 2.7 x10^3/UL 0.7-4.9 Cole# 0.4 x10^3/UL 0.1-0.9 Gran % 58.4 % 42.2-75.2 Lymph % 36.0 % 20.5-51.1 Cole% 5.6 % 1.7-9.3 Laboratory test finding 09/13/2016 Sedimentation Rate 37 mm Quantiferon Gold TB 08/23/2016 M tuberculosis by Negative Negative 8 Quantiferon TB Ag minus Nil Result 0 IU/mL TB Mitogen minus Nil Result > 10.00 IU/mL TB Nil Result 0.03 IU/mL 9 Laboratory test finding 08/23/2016 Hepatitis C Antibody Nonreactive Nonreactive Hepatitis B Core Total Ab Negative Negative 10 Hepatitis B Luis AB 08/23/2016 Hepatitis B Surface AB Nonreactive Nonreactive Titer Hep B Surf AB Level < 3.10 mIU/mL <12 11 Laboratory test finding 08/23/2016 Hepatitis B Surface Ag Nonreactive Nonreactive CBC Auto Diff 08/23/2016 White Blood Count 8.4 10^3/uL 3.5-10.8 Red Blood Count 4.99 10^6/uL 4.0-5.4 Hemoglobin 14.8 g/dL 12.0-16.0 Hematocrit 45 % 35-47 Mean Corpuscular Volume 89 fL 80-97 Mean Corpuscular Hemoglobin 30 pg 27-31 Mean Corpuscular HGB Conc 33 g/dL 31-36 Red Cell Distribution Width 13 % 10.5-15 Platelet Count 290 10^3/uL 150-450 Mean Platelet Volume 10 um3 7.4-10.4 Abs Neutrophils 5.1 10^3/uL 1.5-7.7 Abs Lymphocytes 2.5 10^3/uL 1.0-4.8 Abs Monocytes 0.7 10^3/uL 0-0.8 Abs Eosinophils 0.1 10^3/uL 0-0.6 Abs Basophils 0 10^3/uL 0-0.2 Abs Nucleated RBC 0 10^3/uL Granulocyte % 60.2 % 38-83 Lymphocyte % 29.5 % 25-47 Monocyte % 8.0 % 1-9 Eosinophil % 1.7 % 0-6 Basophil % 0.6 % 0-2 Nucleated Red Blood Cells % 0 Basic Metabolic Panel 08/23/2016 Sodium 134 mmol/L 133-145 Potassium 4.7 mmol/L 3.5-5.0 Chloride 101 mmol/L 101-111 Co2 Carbon Dioxide 26 mmol/L 22-32 Anion Gap 7 mmol/L 2-11 Glucose 98 mg/dL 70-100 Blood Urea Nitrogen 12 mg/dL 6-24 Creatinine 0.72 mg/dL 0.51-0.95 BUN/Creatinine Ratio 16.7 8-20 Calcium 9.4 mg/dL 8.6-10.3 Egfr Non- 83.2 >60 Egfr 107.0 >60 12 Liver Function Panel 08/23/2016 Total Protein 7.5 g/dL 6.4-8.9 Albumin 4.2 g/dL 3.2-5.2 Globulin 3.3 g/dL 2-4 Albumin/Globulin Ratio 1.3 1-3 Total Bilirubin 0.50 mg/dL 0.2-1.0 Direct Bilirubin 0.10 mg/dL 0.03-0.18 Indirect Bilirubin 0.4 mg/dL 0.3-1.0 Alkaline Phosphatase 77 U/L 34-104 Alt 27 U/L 7-52 Ast 26 U/L 13-39 Ua - Micro (Fma) 06/03/2016 Appearance yellow Color clear Glucose, Urine (Fma/CMC/CTX) neg Bilirubin neg Ketones neg SP Grav 1.020 Blood moderate PH 6.0 Protein ssa 2+ Urobil 1.0 Nitrite neg Leukocytes (Fma/CMC/Centrex) neg Hyaline - /Lpf Granular - /Lpf WBC (Fma,Centrex) 10-20 RBC tntc Epith few /Lpf Bacteria 1+ /Hpf Laboratory test finding 06/03/2016 PDF [id number] SEE IMAGE Urine Culture Routine 06/03/2016 Urine Culture, Routine Final report 13 Result 1 See Comment: 14 Antimicrobial Susceptibility See Comment: 15 Complete Blood Count 01/25/2016 WBC 7.8 x10^3/UL 3.6-9.6 RBC 4.56 x10^6/UL 3.90-5.70 HGB 13.9 g/dL 12.1-17.2 HCT 42 % 36-50 MCV 92.0 fL 82.2-97.4 MCH 30.5 pg 27.6-33.3 MCHC 33.1 g/dL 33.0-35.5 RDW 13.3 % 11.6-13.7 PLT 272 x10^3/UL 150-400 MPV 8.6 fL 7.4-10.4 Gran # 4.8 x10^3/UL 1.5-7.2 Lymph# 2.7 x10^3/UL 0.7-4.9 Cole# 0.3 x10^3/UL 0.1-0.9 Gran % 59.9 % 42.2-75.2 Lymph % 35.7 % 20.5-51.1 Cole% 4.4 % 1.7-9.3 Lipid Profile 01/25/2016 Cholesterol 210 mg/dL High 120-200 Triglycerides 103 mg/dL 30-200 HDL Cholesterol 52 mg/dL 30-85 LDL (Calculated) 137 CALC High 0-129 VLDL Cholesterol 21 mg/dL 0-50 HDL Risk Factor 4.0 CALC 0.0-4.4 Comprehensive Metabolic Prof 01/25/2016 Sodium 141 mEq/L 134-149 Potassium 4.5 mEq/L 3.6-5.5 Chloride 102 mEq/L 94-112 Carbon Dioxide 26 mEq/L 21-32 Glucose 105 mg/dL 70-105 BUN 14 mg/dL 6-26 Creatinine 0.7 mg/dL 0.6-1.4 BUN/Creat Ratio 20.0 CALC 8.0-36.0 Calcium 9.1 mg/dL 8.6-10.2 Total Protein 7.0 g/dL 6.4-8.3 Albumin 4.0 g/dL 3.8-5.5 Globulin 3.0 g/dL 2.0-4.8 A/G Ratio 1.3 CALC 0.6-2.3 Alk. Phosphatase 90 U/L 30-110 Alt (SGPT) 35 U/L 7-35 Ast (Sgot) 31 U/L 5-34 Total Bilirubin 0.3 mg/dL 0.2-1.3 GFR Non- >60 ml/min/1.73m^ >=60 GFR >60 ml/min/1.73m^ >=60 Laboratory test finding 01/25/2016 Hemoglobin A1c (Fma) 6.0 % High 4.1- 5.7 Comprehensive Metabolic Prof 07/27/2015 Sodium 141 mEq/L 134-149 Potassium 4.1 mEq/L 3.6-5.5 Chloride 103 mEq/L 94-112 Carbon Dioxide 24 mEq/L 21-32 Glucose 118 mg/dL High 70-105 16 BUN 13 mg/dL 6-26 Creatinine 0.8 mg/dL 0.6-1.4 BUN/Creat Ratio 16.3 CALC 8.0-36.0 Calcium 9.7 mg/dL 8.6-10.2 Total Protein 7.4 g/dL 6.4-8.3 Albumin 4.4 g/dL 3.8-5.5 Globulin 3.0 g/dL 2.0-4.8 A/G Ratio 1.5 CALC 0.6-2.3 Alk. Phosphatase 74 U/L 30-110 Alt (SGPT) 44 U/L High 7-35 17 Ast (Sgot) 34 U/L 5-34 Total Bilirubin 0.4 mg/dL 0.2-1.3 GFR Non- >60 ml/min/1.73m^ >=60 GFR >60 ml/min/1.73m^ >=60 Complete Blood Count 07/27/2015 WBC 8.0 x10^3/UL 3.6-9.6 RBC 4.76 x10^6/UL 3.90-5.70 HGB 14.8 g/dL 12.1-17.2 HCT 44 % 36-50 MCV 93.0 fL 82.2-97.4 MCH 31.2 pg 27.6-33.3 MCHC 33.6 g/dL 33.0-35.5 RDW 13.9 % High 11.6-13.7 PLT 283 x10^3/UL 150-400 MPV 7.9 fL 7.4-10.4 Gran # 4.6 x10^3/UL 1.5-7.2 Lymph# 3.0 x10^3/UL 0.7-4.9 Cole# 0.4 x10^3/UL 0.1-0.9 Gran % 55.9 % 42.2-75.2 Lymph % 38.1 % 20.5-51.1 Cole% 6.0 % 1.7-9.3 Laboratory test finding 07/27/2015 Hemoglobin A1c (Fma/CMC,CX) 5.9 % High 4.1-5.7 Ua - Non Micro (Fma) 07/27/2015 Appearance CLEAR Color YELLOW Glucose, Urine (Fma/CMC/CTX) NEG Bilirubin NEG Ketones NEG SP Grav 1.010 Blood NEG PH 5.5 Protein NEG Urobil 0.2 Nitrite NEG Leukocytes (Fma/CMC/Centrex) NEG Pap HPV High Risk 07/27/2015 Diagn See Comment: 18 Adeq See Comment: 19 [email or web address] See Comment: 20 Perfor See Comment: 21 QC Rev See Comment: 22 Comm . Note See Comment: 23 Iglbp See Comment: 24 HPV, high-risk Negative Negative 25 Laboratory test 07/27/2015 PDF [id number] SEE IMAGE finding Laboratory test 02/18/2015 Hemoglobin A1c 6.2 % High 4.1-5.7 finding (Fma/CMC,CX) Complete Blood Count 02/18/2015 WBC 6.9 x10^3/UL 3.6-9.6 RBC 4.60 x10^6/UL 3.90-5.70 HGB 14.3 g/dL 12.1-17.2 HCT 43 % 36-50 MCV 92.0 fL 82.2-97.4 MCH 31.0 pg 27.6-33.3 MCHC 33.5 g/dL 33.0-35.5 RDW 13.8 % High 11.6-13.7 PLT 258 x10^3/UL 150-400 MPV 8.2 fL 7.4-10.4 Gran # 4.0 x10^3/UL 1.5-7.2 Lymph# 2.6 x10^3/UL 0.7-4.9 Cole# 0.3 x10^3/UL 0.1-0.9 Gran % 55.9 % 42.2-75.2 Lymph % 38.6 % 20.5-51.1 Cole% 5.5 % 1.7-9.3 Comprehensive Metabolic Prof 02/18/2015 Sodium 138 mEq/L 134-149 Potassium 4.7 mEq/L 3.6-5.5 Chloride 99 mEq/L 94-112 Carbon Dioxide 26 mEq/L 21-32 Glucose 112 mg/dL High 70-105 26 BUN 14 mg/dL 6-26 Creatinine 0.7 mg/dL 0.6-1.4 BUN/Creat Ratio 20.0 CALC 8.0-36.0 Calcium 9.0 mg/dL 8.6-10.2 Total Protein 7.6 g/dL 6.4-8.3 Albumin 4.2 g/dL 3.8-5.5 Globulin 3.4 g/dL 2.0-4.8 A/G Ratio 1.2 CALC 0.6-2.3 Alk. Phosphatase 60 U/L 30-110 Alt (SGPT) 47 U/L High 7-35 27 Ast (Sgot) 39 U/L High 5-34 28 Total Bilirubin 0.5 mg/dL 0.2-1.3 Lipid Profile 02/18/2015 Cholesterol 197 mg/dL 120-200 Triglycerides 128 mg/dL 30-200 HDL Cholesterol 54 mg/dL 30-85 LDL (Calculated) 117 CALC 0-129 VLDL Cholesterol 26 mg/dL 0-50 HDL Risk Factor 3.6 CALC 0.0-4.4 Laboratory test finding 02/18/2015 TSH 2.11 mIU/L 0.50-6.00 29 Comprehensive Metabolic Prof 07/30/2014 Sodium 135 mEq/L 134-149 Potassium 5.2 mEq/L 3.6-5.5 Chloride 106 mEq/L 94-112 Carbon Dioxide 28 mEq/L 21-32 Glucose 103 mg/dL 70-105 BUN 14 mg/dL 6-26 Creatinine 0.7 mg/dL 0.6-1.4 BUN/Creat Ratio 20.0 CALC 8.0-36.0 Calcium 9.2 mg/dL 8.6-10.2 Total Protein 7.9 g/dL 6.4-8.3 Albumin 4.5 g/dL 3.8-5.5 Globulin 3.4 g/dL 2.0-4.8 A/G Ratio 1.3 CALC 0.6-2.3 Alk. Phosphatase 76 U/L 30-110 Alt (SGPT) 48 U/L High 7-35 30 Ast (Sgot) 37 U/L High 5-34 31 Total Bilirubin 0.4 mg/dL 0.2-1.3 Lipid Profile 07/30/2014 Cholesterol 229 mg/dL High 120-200 Triglycerides 128 mg/dL 30-200 HDL Cholesterol 59 mg/dL 30-85 LDL (Calculated) 144 CALC High 0-129 VLDL Cholesterol 26 mg/dL 0-50 HDL Risk Factor 3.9 CALC 0.0-4.4 Laboratory test finding 07/30/2014 TSH 2.08 mIU/L 0.50-6.00 Complete Blood Count 07/30/2014 WBC 7.2 x10^3/UL 3.6-9.6 RBC 4.85 x10^6/UL 3.90-5.70 HGB 14.7 g/dL 12.1-17.2 HCT 44 % 36-50 MCV 91.0 fL 82.2-97.4 MCH 30.3 pg 27.6-33.3 MCHC 33.2 g/dL 33.0-35.5 RDW 12.5 % 11.6-13.7 PLT 257 x10^3/UL 150-400 MPV 8.6 fL 7.4-10.4 Gran # 3.8 x10^3/UL 1.5-7.2 Lymph# 3.0 x10^3/UL 0.7-4.9 Cole# 0.4 x10^3/UL 0.1-0.9 Gran % 51.7 % 42.2-75.2 Lymph % 42.6 % 20.5-51.1 Cole% 5.7 % 1.7-9.3 Laboratory test finding 01/07/2013 Blood Urea Nitrogen 14 mg/dL 6-24 Creatinine 01/07/2013 Creatinine 0.80 mg/dL 0.50-1.40 Egfr Non- 74.7 >60 Egfr 96.1 >60 32 Lipid Profile 10/17/2012 Cholesterol 232 mg/dL High 120-200 HDL 54 mg/dL 30-85 Triglycerides 157 mg/dL 30-200 HDL Risk Factor 4.3 CALC 0.0-4.4 LDL (Calculated) 147 CALC High 0-129 VLDL (Calculated) 31 mg/dL 0-50 Comprehensive Metabolic Prof 10/17/2012 Albumin 4.5 g/dL 3.8-5.5 Alk. Phos. 74 U/L 30-110 Alt (SGPT) 29 U/L 7-35 Ast (Sgot) 26 U/L 5-34 BUN 18 mg/dL 6-26 Calcium 9.7 mg/dL 8.6-10.2 Chloride 102 mEq/L 94-112 Creatinine 0.9 mg/dL 0.6-1.4 Carbon Dioxide 26 mEq/L 21-32 Glucose 102 mg/dL 70-105 Sodium 138 mEq/L 134-149 Total Bilirubin 0.4 mg/dL 0.2-1.3 Total Protein 7.7 g/dL 6.3-8.1 Potassium 4.6 mEq/L 3.6-5.5 Globulin 3.1 g/dL 2.0-4.8 A/G Ratio 1.4 Calc 0.6-2.3 BUN/Creat Ratio 21.0 Calc 8.0-36.0 Comp Metabolic Panel 10/12/2011 Sodium 136 mmol/L 135-145 33 Potassium 4.4 mmol/L 3.5-5.0 33 Chloride 102 mmol/L 101-111 33 Co2 (Carbon Dioxide) 26.0 mmol/L 22-32 33 Anion Gap 8.0 mmol/L 2-11 33, 34 Glucose 94 mg/dL 70-100 33 BUN 11 mg/dL 6-24 33 Creatinine 0.8 mg/dL 0.50-1.40 33 One Over Creatinine 1.25 33 BUN/Creatinine Ratio 13.8 8-20 33 Calcium 9.7 mg/dL 8.1-9.9 33 Total Protein 8.0 GM/DL 6.2-8.1 33 Albumin 4.4 GM/DL 3.6-5.4 33 Globulin 3.6 GM/DL 2-4 33 Albumin/Globulin Ratio 1.2 1-3 33 Bilirubin Total 0.8 mg/dL 0.4-1.5 33, 35 Alkaline Phosphatase 74 U/L 30-110 33 Alt (SGPT) 53 U/L 14-54 33 Ast (Sgot) 45 U/L High 12-42 33 eGFR Non- 75.0 > 60 33 eGFR 96.5 > 60 33, 36 Lipid Profile 09/08/2011 Cholesterol 227 mg/dL High 120-200 HDL 52 mg/dL 30-85 Triglycerides 155 mg/dL 30-200 HDL Risk Factor 4.4 CALC High 0.0-4.0 LDL (Calculated) 144 CALC High 0-129 VLDL (Calculated) 31 mg/dL 0-50 Comprehensive Metabolic Prof 09/08/2011 Albumin 4.8 g/dL 3.8-5.5 Alk. Phos. 63 U/L 30-110 Alt (SGPT) 72 U/L High 7-35 Ast (Sgot) 54 U/L High 5-34 BUN 17 mg/dL 6-26 Calcium 10.1 mg/dL 8.6-10.2 Chloride 105 mEq/L 94-112 Creatinine 0.8 mg/dL 0.6-1.4 Carbon Dioxide 22 mEq/L 21-32 Glucose 99 mg/dL 70-105 Sodium 136 mEq/L 134-149 Total Bilirubin 0.4 mg/dL 0.2-1.3 Total Protein 8.0 g/dL 6.3-8.1 Potassium 4.4 mEq/L 3.6-5.5 Globulin 3.1 g/dL 2.0-4.8 A/G Ratio 1.5 Calc 0.6-2.2 BUN/Creat Ratio 21.8 Calc 8.0-36.0 Laboratory test finding 09/08/2011 Gamma gt 46 U/L 5-71 37 CBC Manual Diff-a 09/08/2011 WBC 9.1 3.6-9.6 RBC 4.63 3.90-5.70 Hemoglobin (Fma/CMC/CTX) 14.3 g/dL 12.1 - 17.2 Hematocrit (Fma/CMC/CTX) 43.1 % 36.1 - 50.3 Mean Corpuscular Vol 93.1 82.2-97.4 Mean Corpuscular Hemoglobin 30.9 27.6-33.3 Mean Corpuscular Hemo Concen 33.2 32.0-36.0 Platelets 279 10^3/ul 150-400 RDW 12.7 11.6-13.7 Mean Platelet Volume 12.1 High 6.5-11.0 Neutrophil 49 Band 3 Lymphocytes 42 Monocyte 3 Eosinophils 2 Atypical Lymph 1 Z#Comment rbc/plts normal Laboratory test 08/03/2011 Thin Prep SEE NOTE 38 finding W/HPV(Lsil/DENA/Asc) Comprehensive 08/03/2011 Albumin 4.8 g/dL 3.8-5.5 Metabolic Prof Alk. Phos. 92 U/L 30-110 Alt (SGPT) 77 U/L High 7-35 Ast (Sgot) 58 U/L High 5-34 BUN 14 mg/dL 6-26 Calcium 10.2 mg/dL 8.6-10.2 Chloride 102 mEq/L 94-112 Creatinine 0.8 mg/dL 0.6-1.4 Carbon Dioxide 26 mEq/L 21-32 Glucose 107 mg/dL High 70-105 39 Sodium 139 mEq/L 134-149 Total Bilirubin 0.3 mg/dL 0.2-1.3 Total Protein 8.1 g/dL 6.3-8.1 Potassium 4.2 mEq/L 3.6-5.5 Globulin 3.3 g/dL 2.0-4.8 A/G Ratio 1.4 Calc 0.6-2.2 BUN/Creat Ratio 16.5 Calc 8.0-36.0 Laboratory test finding 08/03/2011 Free T4 0.88 ng/dL 0.75-1.54 TSH 1.88 mIU/L 0.50-6.00 Ua - Non Micro (a) 08/03/2011 Appearance clear Color yellow Glucose neg Bilirubin neg Ketones neg SP Grav 1.025 Blood neg PH 6.5 Protein neg Urobil 0.2 Nitrite neg Leukocytes (Fma/CMC/Centrex) neg CBC Electronic (a) 08/03/2011 WBC 10.5 High 3.6-9.6 RBC 4.76 3.90-5.70 Hemoglobin (Fma/CMC/CTX) 14.9 g/dL 12.1 - 17.2 Hematocrit (Fma/CMC/CTX) 44.1 % 36.1 - 50.3 Platelets 310 10^3/ul 150-400 Lymph% 39.0 20.5-51.1 Mixed% 6.8 Neutrophils % 54.2 Mean Corpuscular Vol 92.6 82.2-97.4 Mean Corpuscular Hemoglobin 31.3 27.6-33.3 Mean Corpuscular Hemo Concen 33.8 32.0-36.0 RDW 12.8 11.6-13.7 Mean Platelet Volume 11.2 High 6.5-11.0 Lipid Profile 06/09/2008 Cholesterol 239 mg/dL High 120-200 40 HDL 58 mg/dL 30-85 40 Triglycerides 122 mg/dL 30-200 40 HDL Risk Factor 4.1 CALC Low 4.2-7.0 40 LDL (Calculated) 156 CALC High 0-129 40 VLDL (Calculated) 24 mg/dL 0-50 40 Comprehensive Metabolic Prof 06/09/2008 Albumin 4.3 g/dL 3.8-5.5 40 Alk. Phos. 69 U/L 30-110 40 Alt (SGPT) 70 U/L High 7-35 40 Ast (Sgot) 54 U/L High 5-34 40 BUN 15 mg/dL 6-26 40 Calcium 9.3 mg/dL 8.6-10.2 40 Chloride 102 mEq/L 94-112 40 Creatinine 0.9 mg/dL 0.6-1.4 40 Carbon Dioxide 21 mEq/L 21-32 40 Glucose 109 mg/dL High 70-105 40 Sodium 142 mEq/L 134-149 40 Total Bilirubin 0.3 mg/dL 0.2-1.3 40 Total Protein 7.8 g/dL 6.3-8.1 40 Potassium 5.0 mEq/L 3.6-5.5 40 Globulin 3.5 g/dL 2.0-4.8 40 A/G Ratio 1.2 Calc 0.6-2.2 40 BUN/Creat Ratio 16.4 Calc 8.0-36.0 40 Ua - Non Micro ([facility]) 06/09/2008 Appearance CLEAR Color YELLOW Glucose NEG Bilirubin NEG Ketones NEG SP Grav 1.025 Blood NEG PH 5.5 Protein NEG Urobil 0.2 Nitrite NEG Leukocytes (Fma/CMC/Centrex) NEG Laboratory test 06/09/2008 Thin Prep W/HPV(Lsil/DENA/Asc) SEE NOTE 41 finding Surgical Pathology 04/08/2008 Surgical Pathology 42 - <SEE NOTE> 1 consistent w/ previous results 2 Because ethnic data is not always readily [...] 15-29 5 Kidney failure <15 (or dialysis) 3 Serologic response to B. burgdorferi infection is not detected, but cannot rule out early infection during which low or undetectable antibody levels to B. burgdorferi may be present. If clinically indicated, a new serum specimen should be submitted in 7-14 days. Test Performed by: [place] [address] 4 consistent w/ previous results 5 RESULTS VERIFIED BY REPEAT ANALYSIS 6 1 sst 7 Negative <1:80 Borderline 1:80 Positive >1:80 8 No interferon-gamma response to M. tuberculosis antigens was detected. Infection with M. tuberculosis is unlikely. A negative result alone does not exclude infection with M. tuberculosis. For detailed information regarding test interpretation see: [email or web address] 9 Test Performed by: [place] [address] Floriculturist: Nik Herzog II, M.D., Ph.D. 10 Test Performed by: [place] [address] Floriculturist: Nik Herzog II, M.D., Ph.D. 11 This assay does not differentiate between reactivity due to a vaccine-induced immune response or an immune response induced by infection with HBV. 12 Because ethnic data is not always readily [...] 15-29 5 Kidney failure <15 (or dialysis) 13 Source of Specimen: clean catch 1 levin top 14 Source of Specimen: clean catch 1 levin top Escherichia coli, identified by an automated biochemical system. 10,000-25,000 colony forming units per mL 15 Source of Specimen: clean catch 1 levin top S=Susceptible; I=Intermediate; R=Resistant P=Positive; N=Negative MICS are expressed in micrograms per mL Antibiotic RSLT#1 RSLT#2 RSLT#3 RSLT#4 Amoxicillin/Clavulanic Acid S Ampicillin S Cefepime S Ceftriaxone S Cefuroxime S Cephalothin S Ciprofloxacin S Ertapenem S Gentamicin S Imipenem S Levofloxacin S Nitrofurantoin S Piperacillin S Tetracycline S Tobramycin S Trimethoprim/Sulfa S 16 consistent w/ previous results 17 consistent w/ previous results 18 NEGATIVE FOR INTRAEPITHELIAL LESION AND MALIGNANCY. THIS SPECIMEN WAS RESCREENED PART OF OUR OCCUPATIONAL PHYSICIAN PROGRAM. 19 Satisfactory for evaluation. Endocervical and/or squamous metaplastic cells (endocervical component) are present. 20 Z12.4 21 Ingris Briseno, Tv Technician (ASCP) 22 Porfirio Tejeda, Tv Technician (ASCP) 23 The Pap smear is a screening test designed to aid in the detection of premalignant and malignant conditions of the uterine cervix. It is not a diagnostic procedure and should not be used as the sole means of detecting cervical cancer. Both false-positive and false-negative reports do occur. 24 This liquid based ThinPrep(R) pap test was screened with the use of an image guided system. 25 This high-risk HPV test detects thirteen high-risk types (16/18/31/33/35/39/45/51/52/56/58/59/68) without differentiation. 26 consistent w/ previous results 27 consistent w/ previous results 28 consistent w/ previous results 29 FASTING 30 consistent w/ previous results 31 consistent w/ previous results 32 Because ethnic data is not always readily [...] 15-29 5 Kidney failure <15 (or dialysis) 33 SDS 25 34 Anion gap measurement may be of limited value in the presence of any alkalosis, especially in a combined acid base disorder. . 35 A metabolite of Naproxen, O-desmethylnaproxen, has been shown to interfere with the [place] method for measuring total bilirubin. Samples from patients who have taken Naproxen have shown spurious elevation in total bilirubin levels. 36 Because ethnic data is not always readily [...] 15-29 5 Kidney failure <15 (or dialysis) 37 1SST 38 [facility]. DEPARTMENT OF PATHOLOGY or Extension 8730 DIVISION FIELD INSPECTOR CYTOLOGY REPORT PATIENT: TON HOLDEN : 1960 AGE: 51 Y SEX: F ACCT: [id number] PROCEDURE DATE: 08/03/2011 DATE RECEIVED: 08/05/2011 REQUESTING PHYSICIAN: CLARISSE SANTOS NP LOCATION: [facility] Case No. [id number] PATIENT DATA: [id number] SPECIMEN SUBMITTED: * * (HPVII) THIN PREP W/HPV (LSIL/ASC/DENA) * * ENDOCERVICAL RELEVANT HISTORY: LMP: ??/??/2001 Contraceptive: NONE Menopause: Y Prev.normal: 06/02 : 3 Para: 2 SPECIMEN ADEQUACY SATISFACTORY FOR EVALUATION, ENDOCERVICAL TRANSFORMATION ZONE COMPONENT PRESENT GENERAL CATEGORIZATION NEGATIVE FOR INTRAEPITHELIAL LESIONS OR MALIGNANCY RECOMMENDATIONS Thin Prep Pap tests are examined with an FDA approved location-guidance system. Thin Prep rack worker was unable to read specimen, therefore full manual review was performed. ADDITIONAL COPIES SENT TO: Screened/Rescreened Electronically Signed Sign Out Date/Time: by: by: MARCELLO BROWN, 08/08/2011 09:29 CT(ASCP) The Pap smear is a screening test designed to aid in the detection of premalignant and malignant conditions of the uterine cervix. It is not a diagnostic procedure and should not be used as the sole means of detecting cervical cancer. Both false-positive and false-negative reports do occur. Performed @ [facility] [address] [place] [address] 39 RESULT DAVID'D 40 FASTING 41 [facility]. DEPARTMENT OF PATHOLOGY or Extension 8063 DIVISION FIELD INSPECTOR CYTOLOGY REPORT PATIENT: TON HOLDEN : 1960 AGE: 48 Y SEX: F ACCT: [id number] PROCEDURE DATE: 06/09/2008 DATE RECEIVED: 06/10/2008 REQUESTING PHYSICIAN: CLARISSE SANTOS NP LOCATION: [facility] Case No. [id number] PATIENT DATA: [id number] LMP: 3-4 YEARS AGO SPECIMEN SUBMITTED: * * (HPVII) THIN PREP W/HPV (LSIL/ASC/DENA) * * ENDOCERVICAL RELEVANT HISTORY: Menarche: Y Menopause: Y : 3 Para: 2 Contraceptive: NONE Prev.normal: 9 YEARS AGO SPECIMEN ADEQUACY SATISFACTORY FOR EVALUATION, ENDOCERVICAL TRANSFORMATION ZONE COMPONENT PRESENT GENERAL CATEGORIZATION NEGATIVE FOR INTRAEPITHELIAL LESIONS OR MALIGNANCY ADDITIONAL COPIES SENT TO: Screened/Rescreened by: Electronically Signed by: CHARLENE ARROYO(ASCP) Signed Date and Time: 06/11/2008 17:00 Thin Prep Pap tests are examined with an FDA-approved location-guidance system (20955). Performed @ [facility], [facility] [place] [address] 42 ---- RUN DATE: 04/09/08 [facility] LIVE PAGE 1 RUN TIME: 1542 Specimen Inquiry RUN USER: INTERFACE -- Name: TON HOLDEN Status: REG REF Re04/08/08 Age/Sex: 47/F Unit#: [id number] Location: [facility]. : 56 -- Specimen: [id number] SOUT Spec Date: 04/08/[address]: Onofre Johnson MD Spec Type: SURGICAL P Received: 04/08/08-5001 Copies to: Josh medrano MD SPECIMEN BIOPSY 2 SMALL POLYPS AT 15 CM. HISTORY POST-OP DIAGNOSIS: Colon polyps CLINICAL INFORMATION: Follow up colon polyps; postive family histor of co aracelis polyps GROSS DESCRIPTION The specimen is received in formalin labelled Ton Holden, Biopsy at 15 cm., and consists of two, fang, soft tissue fragments measuring 0.6 x 0.2 x 0.1 cm. Submitted entirely, one cassette. DIAGNOSIS Colon, 15 cm., biopsy: Hyperplastic polyp. Signed Electronically by: MARCK DUNLAP MD 04/09/08 1541 -- -- DEPARTMENT OF PATHOLOGY, [address] [place] [address] [facility] Permit #[id number] Marck Dunlap M.D. Director of [employer] -- Procedures Date CPT Code Description Status 07/04/2017 Mammogram Completed 06/30/2016 Mammogram Completed 07/27/2015 69533 Pulse Oximetry Completed 06/29/2015 Mammogram Completed 06/26/2014 Mammogram Completed 06/25/2013 Mammogram Completed 04/09/2013 Colonoscopy Completed 08/09/2011 Mammogram Completed 11/05/2010 07914 Pulse Oximetry Completed 05/26/2008 Bone Mineral Density Test Completed 05/19/2008 Mammogram Completed Encounters Type Date Location Provider CPT E/M Dx Office Visit 03/14/2018 10:20a [facility] [place] M.D. 24434 I10 R73.01 K75.81 E66.9 Office Visit 02/06/2018 8:30a [facility] [place] M.D. 63801 I10 R73.01 M17.11 R94.5 E66.9 Z12.11 Office Visit 10/19/2017 3:30p [facility] Katina Rubin [facility] 95592 J02.9 Office Visit 06/07/2017 4:00p [facility] [place] M.D. 70392 R73.01 K21.9 I10 Z00.01 M17.11 Z23 Office Visit 03/22/2017 11:20a [facility] [place] M.D. 99938 G51.0 I10 Office Visit 03/15/2017 9:50a [facility] [place] M.D. 28137 H69.92 I10 Office Visit 01/25/2017 8:40a [facility] [place] M.D. 25559 I10 R73.01 K21.9 Office Visit 10/26/2016 1:30p [facility] Office OMID Gallo 26325 J06.9 Office Visit 09/12/2016 7:20p [facility] Office Alicia Barboza M.D. 73092 L03.032 Office Visit 07/27/2016 8:00a [facility] [place] M.D. 29253 I10 R73.01 K21.9 Z23 Office Visit 06/03/2016 4:15p Main Office OMID Gallo 43475 N39.0 Office Visit 01/25/2016 8:40a [facility] [place] M.D. 88562 I10 R73.01 K21.9 L40.8 E66.8 Office Visit 11/19/2015 3:15p [facility] OMID Gallo 63318 R05 Office Visit 07/27/2015 8:00a [facility] [place] M.D. 71968 Z00.00 I10 R73.01 K21.9 Z23 Office Visit 04/16/2015 9:00a [facility] Office [place] M.D. 64289 401.9 719.46 278.00 696.1 Office Visit 03/06/2015 11:00a [facility] Betina SELINA Eugene 56987 696.1 530.81 Office Visit 02/18/2015 8:00a [facility] [place] M.D. 28862 719.46 401.9 278.00 Office Visit 01/22/2015 6:00p [facility] Office [place] M.D. 28248 719.46 401.9 278.00 112.3 Office Visit 07/24/2014 7:00p [facility] Office [place] M.D. 41927 V70.0 278.00 401.9 719.46 V04.81 Office Visit 01/07/2013 4:15p Main Office OMID Gallo 78125 789.03 Office Visit 11/27/2012 6:00p Main Office Arnaldo Painter 95677 782.0 Office Visit 10/10/2012 4:30p [facility] Josh Spangler M.D. 02300 401.9 272.4 V04.81 Office Visit 08/22/2012 6:10p Main Office Dick Torres M.D. 01203 465.9 Office Visit 09/08/2011 4:30p Main Office Josh Spangler M.D. 68535 401.9 272.4 278.00 794.8 288.60 780.52 Office Visit 08/03/2011 6:30p Main Office Ella Ortiz-C 84936 V72.31 V18.0 401.9 V04.81 V76.41 Office Visit 11/05/2010 9:30a Main Office Azalea Khan [facility] 61821 466.0 Office Visit 03/31/2009 1:50p Main Office Edilberto Rodrigues M.D. 81452 380.22 682.9 Office Visit 06/25/2008 6:15p Main Office Ella Ortiz-C 89056 272.4 790.21 Office Visit 06/09/2008 10:00a Main Office Ella Ortiz-C 76921 V72.31 627.2 V17.81 796.2 Office Visit 04/24/2008 6:40p Main Office Josh Spangler M.D. 49395 V12.72 V76.10 V76.2 V18.0 V06.5 Plan of Care Future Appointment(s):08/08/2018 8:40 am - [place] M.D. at [facility] Yazmme8104/04/2018 - [place] M.D.Z01.818 Encounter for other preprocedural examinationComments:Cleared for surgery. Will fax note to ordering physician. HOLD NSAIDS and supplements 5-7 days prior to nqxboweM90.11 Unilateral primary osteoarthritis, right kneeI10 Essential (primary) hypertensionComments:The patient will continue to monitor blood pressure and let me know the blood pressure results if there are readings persistently above 140/80. Goal blood pressure is less than 140/80. Recommend low salt/cardiac diet and routine exercise.R73.01 Impaired fasting glucoseComments:Counseled on heart healthy diet and exercise; limiting carbs and portion control, at least 30 minutes of physical activity daily; consider Mediterranean diet as a guide for healthy eating ; A1c> 6.5is diagnostic of lxjwffycH18.81 Nonalcoholic steatohepatitis ([place])Comments:liver enzymes wehnclE83.9 Obesity, unspecifiedComments:Counseled on heart healthy diet such as Mediterranean diet. Eat protein and vegetables first then carbohydrates last. Get at least 150 minutes of moderate aerobic activity or 75 minutes of vigorous aerobic activity a week, or a combination of moderate and vigorous activity. General goal of 30 minutes of physical activity a day.L40.9 Psoriasis, unspecifiedComments:hold humira until cleared after surgeryAllComments:~B_~U_Medication Management~b_~u_ Patient Understands medications she's taking? Yes No Are there Barriers to Adherence? Yes No Has the patient been asked about herbal supplements and therapies, and OTC meds? Yes No
[2018-04-24] MEDS ORDERED: ceFAZolin 2 GM PREMIX (*) 2 GM/50 ML BAG IVPB ONE (06:57)
[2018-04-24] MEDS ORDERED: Bupivacaine 0.5% PF 10 ML VIAL INJ ONE ×2 (07:28→08:31)
[2018-04-24] MEDS ORDERED: Midazolam* 1 MG/ML 5 ML VIAL (5 MG) ONE (07:36)
[2018-04-24] MEDS ORDERED: fentaNYL* 50 MCG/ML 2 ML VIAL (100 MCG VIAL) ONE (07:36)
[2018-04-24] MEDS ORDERED: Tranexamic Acid 1,000 MG/10 ML SDV IV ONE ×2 (07:51→08:24)
[2018-04-24] MEDS ORDERED: Bupivacaine 0.5% W/EPI SDV* 10 ML VIAL INJ ONE (08:31)
[2018-04-24] MEDS ORDERED: Propofol* 10 MG/ML 20 ML BTL IV PUSH ONE (08:32)
[2018-04-24] MEDS ORDERED: Phenylephrine IV* 40 MCG/ML 10 ML SYRINGE ONE (08:33)
[2018-04-24] MEDS ORDERED: EPHEDrine (Pressors)* 50 MG/ML VIAL ONE (08:36)
[2018-04-24] MEDS ORDERED: Naloxone* 0.4 MG/ML 1 ML VIAL IV PRN (09:00)
[2018-04-24] MEDS ORDERED: Ondansetron INJ* 2 MG/ML VIAL IV PRN ×2 (09:00→11:01)
[2018-04-24] MEDS ORDERED: HYDROmorphone INJ* 0.5 MG/0.5 ML SYRINGE IV PRN (09:00)
[2018-04-24] MEDS ORDERED: HYDROcodone/ACETAMIN 5-325 MG* 1 TAB PO PRN (09:00)
[2018-04-24] MEDS ORDERED: Acetaminophen TAB* 325 MG PO PRN (09:00)
[2018-04-24] MEDS ORDERED: fentaNYL* 50 MCG/ML 2 ML VIAL (100 MCG VIAL) IV PRN (09:00)
[2018-04-24] MEDS ORDERED: Magnesium Hydroxide LIQ* 30 ML UDC PO PRN (11:01)
[2018-04-24] MEDS ORDERED: Bisacodyl SUPP* 10 MG SUPP PR PRN (11:01)
[2018-04-24] MEDS ORDERED: diPHENhydraMINE IV* 50 MG/ML 1 ml VIAL (BENADRYL) IV PRN (11:01)
[2018-04-24] MEDS ORDERED: Polyethylene Glycol 3350* 17 GM PACKET PO PRN (11:01)
[2018-04-24] MEDS ORDERED: oxyCODONE/Acetamin 5/325 MG* TAB PO PRN (11:01)
--- NOTE | 2018-04-24 11:47 | RAD ---
HISTORY: s/p right TKA COMPARISONS: February 14, 2018 VIEWS: 2, Frontal and lateral views of the right knee FINDINGS: BONE DENSITY: Normal. BONES: The patient is status post right knee arthroplasty. There is no hardware failure or osteolysis. JOINTS: The patient is status post right knee arthroplasty ALIGNMENT: There is no dislocation. SOFT TISSUES: Unremarkable. OTHER FINDINGS: None. IMPRESSION: STATUS POST RIGHT KNEE ARTHROPLASTY.
[2018-04-24] MEDS: Acetaminophen TAB* 325 MG PO SCH ×2 (13:12→20:08)
[2018-04-24] MEDS: Morphine INJ* 2 MG/ML 1 ML SYRINGE (TWO MG - NEW SYRINGE VERSION) IV PRN ×4 (13:12→21:31)
[2018-04-24] MEDS: oxyCODONE TAB* 5 MG TAB PO PRN ×2 (15:33→20:08)
--- NOTE | 2018-04-24 16:02 | CONS ---
CONSULTATION REPORT: DATE OF CONSULT: 04/24/18 PROVIDER: Jose Oseguera NP. ATTENDING PHYSICIAN: Shi Grant DO (report dictated by Jose Oseguera NP ). REFERRING PHYSICIAN: Dr. Julieta Sheth. PRIMARY CARE PROVIDER: Dr. Frances Tyler. REASON FOR CONSULT: Co-medical management, status post right total knee arthroplasty. HISTORY OF PRESENT ILLNESS: Ms. Holden is a 58-year-old female with a past medical history of psoriasis, hypertension, and gout and right knee pain in which she failed conservative outpatient treatment and underwent an elective right total knee arthroplasty today with Dr. Sheth. [facility] was asked to co-medical manage. PAST MEDICAL HISTORY: 1. Psoriasis. 2. Hypertension. 3. Gout. 4. Obesity. 5. GERD. PAST SURGICAL HISTORY: 1. x2. 2. Status post cholecystectomy. 3. Status post tonsillectomy. MEDICATIONS: Home medications: 1. Lisinopril 20 mg p.o. daily. 2. Pantoprazole 20 mg p.o. daily. Current medications reviewed and appreciated. ALLERGIES: SULFA. FAMILY HISTORY: Has family history of heart disease, hypertension, thyroid disease, colon cancer, and renal disease. SOCIAL HISTORY: The patient denies any history of tobacco abuse. Does not use alcohol or drugs. She currently lives with her partner, Chepe Michel, who is her health care proxy; his number is [phone] or [phone]. REVIEW OF SYSTEMS: A 14-point review of systems was performed. All the pertinent positives and negatives are mentioned in the history of present illness. Otherwise, they are negative. PHYSICAL EXAM: Temperature 96.8, heart rate 75, respirations 18, pulse oximetry 100% on room air, blood pressure 126/67. General Appearance: A 58- year-old obese female, lying on the PACU stretcher, alert and oriented x3, in no acute distress, appropriate to situation. HEENT: Head is normocephalic, atraumatic. Pupils are equal and reactive to light. Dry mucous membranes. Neck is supple. Cardiac: S1, S2. Regular rate and rhythm. No murmur, rub, or gallop appreciated. Lungs are clear to auscultation bilaterally. Good aeration throughout. Abdomen: Obese, soft, nontender, nondistended. Normal bowel sounds throughout. Extremities: Right knee is wrapped with Cryo unit in place. The patient has sensation in her feet bilaterally. 2+ DP pulses bilaterally. Skin: Extremities are well perfused. Neuro: Alert and oriented x3. No focal deficits noted. LABORATORY DATA: Preoperative labs on 04/16/18 were reviewed and unremarkable. ASSESSMENT AND PLAN: Ms. Bessie Holden is a 58-year-old female with a past medical history of obesity, hypertension, gout, psoriasis, and right knee pain who failed conservative treatment and underwent an elective right total knee arthroplasty today on 04/24/[address] Sheth. [facility] was asked to co-medical manage. 1. Status post right knee arthroplasty. Postop day 0. Disposition per ortho team. Pain management, bowel regimens, PT/OT. Check CBC and BMP in the morning. The patient appears to be doing well postoperatively at this time. 2. Hypertension, controlled. We will hold lisinopril at this time as she has noted systolic blood pressures in the 110's to 120's and we will reevaluate in the morning of the need for her antihypertensive medication. 3. Gastroesophageal reflux disease. Continue omeprazole p.o. daily. 4. DVT prophylaxis. Lovenox 40 mg subcu q.24 hours, it has been initiated on Coumadin per ortho team. 5. Code status. Full code. TIME SPENT: Approximately 45 minutes were spent on this consultation. Thank you for asking us to be a part of Ms. Holden's care. [facility] will continue to follow along. JOSE OSEGUERA NP [id number]/CPS #: [id number] AV
[2018-04-24] MEDS: Cyclobenzaprine TAB* 10 MG PO PRN ×2 (16:20→22:22)
[2018-04-24] MEDS: ceFAZolin 1 GM in Dextrose (*) 1 GM/50 ML BAG IVPB SCH (16:45)
[2018-04-24] MEDS ORDERED: Warfarin TAB(*) 6 MG PO ONE (17:00)
[2018-04-24] MEDS: Ondansetron TAB* 4 MG PO PRN (20:07)
[2018-04-24] MEDS: Docusate CAP* 100 MG PO SCH (20:07)
[2018-04-24] MEDS: Magnesium Hydroxide LIQ* 30 ML UDC PO SCH (20:08)
[2018-04-25] MEDS: ceFAZolin 1 GM in Dextrose (*) 1 GM/50 ML BAG IVPB SCH ×2 (00:32→09:02)
[2018-04-25] MEDS: Morphine INJ* 2 MG/ML 1 ML SYRINGE (TWO MG - NEW SYRINGE VERSION) IV PRN ×2 (01:02→20:20)
[2018-04-25] MEDS: oxyCODONE TAB* 5 MG TAB PO PRN ×4 (03:06→21:42)
[2018-04-25] MEDS: Acetaminophen TAB* 325 MG PO SCH ×3 (05:00→20:27)
[2018-04-25] MEDS: Cyclobenzaprine TAB* 10 MG PO PRN (06:11)
[2018-04-25] MEDS: oxyCODONE/Acetamin 5/325 MG* TAB PO PRN (06:11)
[2018-04-25 06:20] LABS: Hematocrit 37 % (35-47); Hemoglobin 12.5 g/dl (12.0-16.0); Mean Platelet Volume 9.7 um3 (7.4-10.4); Platelet Count 219 10^3/ul (150-450)
[2018-04-25 06:35] LABS: INR 1.02 (0.77-1.02)
[2018-04-25] MEDS: Omeprazole CAP* 20 MG PO SCH (07:15)
--- NOTE | 2018-04-25 08:25 | PN ---
Subjective Date of Service: 04/25/18 Interval History: pt reports intermittent nausea today with vomiting. She currently denies any Nausea. Is eating dinner and feels better. No abdominal pain. Reports pain is well controlled. Objective Active Medications: Acetaminophen (Tylenol Tab*) 975 mg PO Q8H [facility] Last Admin: 04/25/18 05:00 Dose: Not Given Bisacodyl (Dulcolax Supp*) 10 mg OH DAILY PRN PRN Reason: constipation Cyclobenzaprine HCl (Flexeril Tab*) 10 mg PO TID PRN PRN Reason: SPASMS Last Admin: 04/25/18 06:11 Dose: 10 mg Diphenhydramine HCl (Benadryl Iv*) 12.5 mg IV Q6H PRN PRN Reason: PRURITIS Docusate Sodium (Colace Cap*) 100 mg PO BID [facility] Last Admin: 04/24/18 20:07 Dose: 100 mg Enoxaparin Sodium (Lovenox(*)) 40 mg SUBCUT Q24H [facility] Cefazolin Sodium/Dextrose (Kefzol 1 Gm In Dextrose Duplex (*)) 1 gm in 50 mls @ 200 mls/hr IVPB Q8H [facility] Stop: 04/25/18 08:44 Last Admin: 04/25/18 00:32 Dose: 200 mls/hr Lactated Ringer's (Lactated Ringers 1000 Ml Bag*) 1,000 mls @ 100 mls/hr IV PER RATE [facility] Last Admin: 04/25/18 01:56 Dose: 100 mls/hr Lactulose (Lactulose*) 30 ml PO Q6H PRN PRN Reason: constipation Lisinopril (Prinivil Tab*) 20 mg PO DAILY [facility] Magnesium Hydroxide (Milk Of Magnesia Liq*) 30 ml PO BID [facility] Last Admin: 04/24/18 20:08 Dose: 30 ml Magnesium Hydroxide (Milk Of Magnesia Liq*) 30 ml PO Q6H PRN PRN Reason: constipation Morphine Sulfate (Morphine Inj ((Syringe))*) 2 mg IV Q2H PRN PRN Reason: PAIN Last Admin: 04/25/18 01:02 Dose: 2 mg Omeprazole (Prilosec Cap*) 20 mg PO DAILY@0730 [facility] Last Admin: 04/25/18 07:15 Dose: 20 mg Ondansetron HCl (Zofran Inj*) 4 mg IV Q6H PRN PRN Reason: nausea Ondansetron HCl (Zofran Tab*) 4 mg PO Q6H PRN PRN Reason: NAUSEA Last Admin: 04/24/18 20:07 Dose: 4 mg Oxycodone HCl (Roxycodone Tab*) 10 mg PO Q4H PRN PRN Reason: SEVERE PAIN Last Admin: 04/25/18 03:06 Dose: 10 mg Oxycodone/Acetaminophen (Percocet 5/325 Tab*) 1 tab PO Q4H PRN PRN Reason: PAIN Oxycodone/Acetaminophen (Percocet 5/325 Tab*) 2 tab PO Q4H PRN PRN Reason: PAIN Last Admin: 04/25/18 06:11 Dose: 2 tab Polyethylene Glycol/Electrolytes (Miralax*) 17 gm PO DAILY PRN PRN Reason: Constipation Vital Signs - 8 hr 04/25/18 04/25/18 04/25/18 01:00 01:02 03:06 Temperature Pulse Rate Respiratory 20 18 20 Rate Blood Pressure (mmHg) O2 Sat by Pulse Oximetry 04/25/18 04/25/18 04/25/18 03:07 03:47 05:01 Temperature 98.3 F Pulse Rate 78 Respiratory 20 20 18 Rate Blood Pressure 144/68 (mmHg) O2 Sat by Pulse 91 Oximetry 04/25/18 04/25/18 04/25/18 06:11 07:12 07:57 Temperature 98.3 F 98.3 F Pulse Rate 74 74 Respiratory 16 16 16 Rate Blood Pressure 137/61 137/61 (mmHg) O2 Sat by Pulse 97 97 Oximetry 04/25/18 04/25/18 04/25/18 08:00 08:11 08:12 Temperature Pulse Rate Respiratory 18 16 18 Rate Blood Pressure (mmHg) O2 Sat by Pulse 97 Oximetry Oxygen Devices in Use Now: None Result Diagrams: 04/25/18 05:57 04/25/18 05:57 Assess/Plan/Problems-Billing Assessment: Mrs. Dumont is a 58 female with a PMH of HTN, Obesity, GERD, GOUT, Psoriasis who underwent an elective right knee arthroplasty on 04/[address] Sheth. [facility] was asked to co-medical manage. - Patient Problems (1) Status post total right knee replacement Comment: POD #1 Dispo per Ortho Pain management Bowel regimen PT/OT (2) HTN (hypertension) Comment: controlled. continue home dose lisinopril (3) Obesity Comment: BMI 44.3 (4) GERD (gastroesophageal reflux disease) Comment: stable. continue PPI (5) DVT prophylaxis Comment: Lovenox Q24hr until INR is >2. Started on coumadin per ortho Status and Disposition: inpatient. Dispo per Orth. Hospital medicine is signing off, patient blood pressures are stable.
--- NOTE | 2018-04-25 08:54 | PN ---
Progress Note - Progress Note Date of Service: 04/25/18 SOAP: Subjective: []Patient seen at bedside. She feels well with no complaints. Denies right knee pain, chest pain, shortness of breath, dizziness or nausea. Objective: []General: Well appearing, NAD RLE: Right knee dressing CDI, cryo unit in use. Thigh is soft, DF/PF intact, DP2 +, sensation intact to light touch distally BL LE: Calves supple and nontender without erythema, edema or palpable cords Assessment: []POD 1 SP right total knee arthroplasty, Dr Sheth 04/24 Plan: []WBAT PT/OT Continue use of cryo unit Lovenox bridge to coumadin, Coumadin 8 mg today BMP collected, will await results Vital Signs Temp 98.3 F 04/25/18 07:57 Pulse 74 04/25/18 07:57 Resp 18 04/25/18 08:12 BP 137/61 04/25/18 07:57 Pulse Ox 97 04/25/18 08:00 Intake & Output 04/24/18 04/25/18 04/25/18 18:59 06:59 18:59 Intake Total 2200 1849 360 Output Total 700 1575 Balance 1500 274 360 Weight 242 lb Intake: IV Fluids 2150 1099 ABX - CEFAZOLIN 108 LR 2150 991 Oral 50 750 360 Output: Urine 0 Manzo 500 975 Emesis 600 Estimated Blood Loss 200 Other: # Bowel Movements 0 Laboratory Last Values Hgb 12.5 g/dl (12.0-16.0) 04/25/18 05:57 Hct 37 % (35-47) 04/25/18 05:57 Plt Count 219 10^3/ul (150-450) 04/25/18 05:57 MPV 9.7 um3 (7.4-10.4) 04/25/18 05:57 INR (Anticoag Therapy) 1.02 (0.77-1.02) 04/25/18 05:57
[2018-04-25] MEDS ORDERED: Lisinopril TAB* 10 MG PO SCH (09:00)
[2018-04-25] MEDS: Magnesium Hydroxide LIQ* 30 ML UDC PO SCH ×2 (09:03→20:27)
[2018-04-25] MEDS: Lisinopril TAB* 10 MG PO SCH (09:03)
[2018-04-25] MEDS: Docusate CAP* 100 MG PO SCH ×2 (09:03→20:27)
[2018-04-25 09:17] LABS: EGFR Non-African American 115.2 (>60)
[2018-04-25] MEDS: Enoxaparin(*) 40 MG/0.4 ML SYR SUBCUT SCH (12:18)
--- NOTE | 2018-04-25 13:20 | OP ---
CONTINUATION ADDENDUM NOW INCLUDED ON THIS REPORT DATE OF OPERATION: 04/24/18 - ROOM #342 DATE OF : 56 SURGEON: Julieta Sheth MD DEPUTY [place] [employer]: KAILEE Ackerman. Ms. Bosch did help throughout the procedure with preparation of the leg, wound retraction, manipulation of the knee, and wound closure. ANESTHESIOLOGIST: Isela Mar MD ANESTHESIA: Spinal. PRE-OP DIAGNOSIS: Severe end-stage degenerative osteoarthritis of the right knee joint. POST-OP DIAGNOSIS: Severe end-stage degenerative osteoarthritis of the right knee joint. OPERATIVE PROCEDURE: Right total knee arthroplasty. INDICATIONS: Ms. Holden is a 58-year-old female with years of increasingly severe right knee pain. She failed conservative treatment with anti- inflammatories, pain medications, intraarticular injections, and physical therapy. She elected to undergo right total knee arthroplasty due to continued pain and decreased quality of life. Her radiographs showed [id number] arthritis. Informed consent was obtained from the patient. She understood the risks of surgery included, but were not limited to, bleeding, infection, damage to nearby structures, continued pain, need for further surgery, intraoperative fracture, nerve palsy, hardware failure or loosening, knee stiffness, loss of motion, stroke, heart attack, blood clot, and . She wished to proceed. TOURNIQUET TIME: 54 minutes. COMPLICATIONS: None. ESTIMATED BLOOD LOSS: 300 cc. SPECIMENS: Bone and cartilage from the right knee joint sent to Pathology. HARDWARE USED: This is cemented [employer] total knee arthroplasty hardware. Two packages of Simplex bone cement. For the femur, a right size 4 Narrow Oxinium posterior stabilized femoral component, Legion type. For the tibia, a right size 3 Yasmeen II tibial baseplate. For the insert, an 11-mm posterior stabilized insert, size 3/4. For the patella, a 26-mm 3-peg all poly patella with 7.5 thickness. INTRAOPERATIVE FINDINGS: Intraoperatively, the patient was noted to have severe end-stage arthritis with significant osteopenia. She had tricompartmental full- thickness loss of cartilage. DESCRIPTION OF PROCEDURE: Ms. Holden was identified in the preanesthesia unit. Her right lower extremity was marked as the correct operative side. Informed consent was signed and placed in the chart. The patient was taken to the operating room and placed under spinal anesthesia without difficulty. A Manzo catheter was placed. Tourniquet was placed on the right thigh. Right lower extremity was prepped and draped in the usual sterile fashion. Preop time-out was made to correctly identify the patient's side and site. Appropriate perioperative antibiotics were given within 1 hour of incision. Tourniquet was inflated and total tourniquet time for this procedure was 54 minutes. A 10-cm midline incision was made with a 10-blade and carried down to the extensor mechanism. A new 10 blade was used to make a standard medial parapatellar arthrotomy. The patella was subluxed laterally. Electrocautery was used to subperiosteally elevate the soft tissue off the superomedial tibia to the mid sagittal plane. The knee was flexed up. The anterior horn of the lateral meniscus and ACL were sharply released. A drill was used to enter the distal femur. Intramedullary distal femoral cutting guide was pinned on the distal femur. An oscillating saw was used to make the distal femoral cut. External rotation guide was pinned on the distal femur. The distal femur was sized to a size 4. A size 4 multi-cutting jig was pinned on the distal femur. Oscillating saw was used to make the appropriate chamfer cuts. The PCL was completely released and the tibia was subluxed anteriorly. Extramedullary tibial cutting guide was pinned on the proximal tibia. Oscillating saw was used to make the proximal tibial cut perpendicular to the mechanical axis of the tibia. CONTINUATION ADDENDUM: The knee was brought into full extension and the bone was carefully removed. The spacer block was placed and the knee had a good medial and lateral ligamentous balancing with the knee in full extension. Flexion-extension gaps were well balanced. The knee was flexed up. The lamina polisher dial was placed both medially and laterally. Any remaining meniscus was carefully removed using electrocautery. Curved osteotome was used to remove any posterior osteophytes. The tibial tray and drop ruma were placed and once again confirmed the satisfactory tibial cut. A trial right size 4 narrow femur was impacted onto the distal femur and had good fit. The box for the posterior stabilized implant was prepared using a reamer and box cut osteotome. A size 3 tibial tray trial with a 11-mm insert trial was placed and knee was taken through a range of motion. The knee had full extension to 130 degrees of flexion with satisfactory patellofemoral tracking. The patella was everted. A 7 mm of patellar bone and cartilage was carefully removed using an oscillating saw. The patella was sized to a size 26. A 3 peg holes were drilled through the size 26 guide. A 26 trial patella was placed and the knee was taken through a range of motion. There was satisfactory patellofemoral tracking. All trials were carefully removed. The tibia was subluxed anteriorly and sized to a size 3. Proximal tibia was prepared using the keel punch. The knee was copiously irrigated with sterile saline. All bony cut surfaces were irrigated and dried. Final implants were cemented into place starting with the tibia followed by the femur and last the patella. An 11-mm insert trial was placed and the knee was brought out into full extension. Tourniquet was turned down. The knee was copiously irrigated with sterile saline. Electrocautery was used to obtain meticulous hemostasis. Once the cement had fully cured, the insert trial was removed. Any excess cement was carefully removed from around the capsule and hardware. Final implant chosen was 11 mm posterior stabilized articular insert size 3-4. This was locked into position on the tibial tray. Stability of the insert was checked and rechecked and noted to be stable. The knee was once again copiously irrigated with sterile saline. The extensor mechanism was closed using interrupted #1 Vicryl. The rest of the incision was closed in a layered fashion using 0 and 2-0 Vicryl. Skin was closed using running 3-0 nylon suture. Sterile Xeroform, 4x4s, and Webril were used to cover the incision. Aj wrap and cold pack were placed over this. The patient's anesthesia was reversed without difficulty. She was taken to the PACU in stable condition. Intended weightbearing will be weightbearing as tolerated. Intended DVT prophylaxis will be Coumadin with a Lovenox bridge. [id number]/CPS #: [id number] A- [id number]/CPS #: [id number] AV
[2018-04-25] MEDS ORDERED: Warfarin TAB(*) 4 MG PO ONE (17:00)
[2018-04-25] MEDS: Ondansetron TAB* 4 MG PO PRN (18:06)
[2018-04-26] MEDS: Morphine INJ* 2 MG/ML 1 ML SYRINGE (TWO MG - NEW SYRINGE VERSION) IV PRN (03:47)
[2018-04-26] MEDS: Acetaminophen TAB* 325 MG PO SCH ×4 (04:27→20:25)
[2018-04-26 06:04] LABS: Hematocrit 35 % (35-47); Hemoglobin 11.8 g/dl (12.0-16.0); Mean Platelet Volume 9.6 um3 (7.4-10.4); Platelet Count 216 10^3/ul (150-450)
--- NOTE | 2018-04-26 06:07 | OP ---
OPERATIVE REPORT: ADDENDUM: The knee was brought into full extension and the bone was carefully removed. The spacer block was placed and the knee had a good medial and lateral ligamentous balancing with the knee in full extension. Flexion- extension gaps were well balanced. The knee was flexed up. The lamina erp technical lead was placed both medially and laterally. Any remaining meniscus was carefully removed using electrocautery. Curved osteotome was used to remove any posterior osteophytes. The tibial tray and drop ruma were placed and once again confirmed the satisfactory tibial cut. A trial right size 4 narrow femur was impacted onto the distal femur and had good fit. The box for the posterior stabilized implant was prepared using a reamer and box cut osteotome. A size 3 tibial tray trial with a 11-mm insert trial was placed and knee was taken through a range of motion. The knee had full extension to 130 degrees of flexion with satisfactory patellofemoral tracking. The patella was everted. A 7 mm of patellar bone and cartilage was carefully removed using an oscillating saw. The patella was sized to a size 26. A 3 peg holes were drilled through the size 26 guide. A 26 trial patella was placed and the knee was taken through a range of motion. There was satisfactory patellofemoral tracking. All trials were carefully removed. The tibia was subluxed anteriorly and sized to a size 3. Proximal tibia was prepared using the keel punch. The knee was copiously irrigated with sterile saline. All bony cut surfaces were irrigated and dried. Final implants were cemented into place starting with the tibia followed by the femur and last the patella. An 11-mm insert trial was placed and the knee was brought out into full extension. Tourniquet was turned down. The knee was copiously irrigated with sterile saline. Electrocautery was used to obtain meticulous hemostasis. Once the cement had fully cured, the insert trial was removed. Any excess cement was carefully removed from around the capsule and hardware. Final implant chosen was 11 mm posterior stabilized articular insert size 3-4. This was locked into position on the tibial tray. Stability of the insert was checked and rechecked and noted to be stable. The knee was once again copiously irrigated with sterile saline. The extensor mechanism was closed using interrupted #1 Vicryl. The rest of the incision was closed in a layered fashion using 0 and 2-0 Vicryl. Skin was closed using running 3-0 nylon suture. Sterile Xeroform, 4x4s, and Webril were used to cover the incision. Aj wrap and cold pack were placed over this. The patient's anesthesia was reversed without difficulty. She was taken to the PACU in stable condition. Intended weightbearing will be weightbearing as tolerated. Intended DVT prophylaxis will be Coumadin with a Lovenox bridge. [id number]/[facility] #: [id number] [facility]CH[facility]ATRIC CENTERJo-Ann
[2018-04-26 06:10] LABS: INR 1.1 (0.77-1.02)
[2018-04-26] MEDS: Omeprazole CAP* 20 MG PO SCH (06:46)
[2018-04-26] MEDS: oxyCODONE TAB* 5 MG TAB PO PRN ×3 (07:29→22:11)
[2018-04-26] MEDS: Docusate CAP* 100 MG PO SCH ×2 (08:06→20:25)
[2018-04-26] MEDS: Magnesium Hydroxide LIQ* 30 ML UDC PO SCH ×2 (08:06→20:25)
[2018-04-26] MEDS: Lisinopril TAB* 10 MG PO SCH (08:06)
[2018-04-26] MEDS: Ondansetron TAB* 4 MG PO PRN (10:48)
[2018-04-26] MEDS: oxyCODONE/Acetamin 5/325 MG* TAB PO PRN ×2 (11:28→23:17)
[2018-04-26] MEDS: Enoxaparin(*) 40 MG/0.4 ML SYR SUBCUT SCH (11:28)
--- NOTE | 2018-04-26 13:01 | PN ---
Progress Note - Progress Note Date of Service: 04/26/18 SOAP: Subjective: []Patient seen at bedside. She feels well though she had an episode of O2 sat dropping to 88%, she remained asymptomatic. Denies chest pain, shortness of breath, dizziness, nausea. Right knee pain is well controlled Objective: []General: Well appearing, NAD RLE: Right knee dressing changed, incision is CDI, cryo unit in use. Thigh is soft, DF/PF intact, DP2+, sensation intact to light touch distally BL LE: Calves supple and nontender without erythema, edema or palpable cords Assessment: []POD 2 SP right total knee arthroplasty, Dr Sheth 04/24 Plan: []WBAT PT/OT Continue use of cryo unit Lovenox bridge to coumadin, Coumadin 6 mg today Will watch oxygenation and DC home if stable Vital Signs Temp 98.0 F 04/26/18 11:23 Pulse 81 04/26/18 11:23 Resp 18 04/26/18 11:28 BP 126/60 04/26/18 11:23 Pulse Ox 90 04/26/18 12:49 Intake & Output 04/25/18 04/26/18 04/26/18 18:59 06:59 18:59 Intake Total 1875 250 360 Output Total 549 650 650 Balance 1326 -400 -290 Intake: IV Fluids 1035 ABX - CEFAZOLIN 55 LR 980 Oral 840 250 360 Output: Urine 549 650 650 Other: Estimated Void Medium # Bowel Movements 0 1 Estimated Stool Amount Large # Voids 1 Laboratory Last Values Hgb 11.8 g/dl (12.0-16.0) L 04/26/18 05:55 Hct 35 % (35-47) 04/26/18 05:55 Plt Count 216 10^3/ul (150-450) 04/26/18 05:55 MPV 9.6 um3 (7.4-10.4) 04/26/18 05:55 INR (Anticoag Therapy) 1.10 (0.77-1.02) H 04/26/18 05:55 Sodium 134 mmol/L (135-145) L 04/25/18 05:57 Potassium 4.0 mmol/L (3.5-5.0) 04/25/18 05:57 Chloride 100 mmol/L (101-111) L 04/25/18 05:57 Carbon Dioxide 25 mmol/L (22-32) 04/25/18 05:57 Anion Gap 9 mmol/L (2-11) 04/25/18 05:57 BUN 9 mg/dL (6-24) 04/25/18 05:57 Creatinine 0.54 mg/dL (0.51-0.95) 04/25/18 05:57 Est GFR ( Amer) 139.3 (>60) 04/25/18 05:57 Est GFR (Non-Af Amer) 115.2 (>60) 04/25/18 05:57 BUN/Creatinine Ratio 16.7 (8-20) 04/25/18 05:57 Glucose 122 mg/dL (70-100) H 04/25/18 05:57 Calcium 8.8 mg/dL (8.6-10.3) 04/25/18 05:57
[2018-04-26] MEDS ORDERED: PROCHLORPERAZINE INJ 5 MG/ML 2 ML VIAL IV PRN (14:37)
[2018-04-26] MEDS ORDERED: Warfarin TAB(*) 6 MG PO SCH (17:00)
[2018-04-27] MEDS: Acetaminophen TAB* 325 MG PO SCH ×2 (03:37→12:21)
[2018-04-27 05:39] LABS: Hematocrit 34 % (35-47); Hemoglobin 11.6 g/dl (12.0-16.0); Mean Platelet Volume 9.4 um3 (7.4-10.4); Platelet Count 204 10^3/ul (150-450)
[2018-04-27 05:45] LABS: INR 1.14 (0.77-1.02)
[2018-04-27] MEDS: Lisinopril TAB* 10 MG PO SCH (08:17)
[2018-04-27] MEDS: Docusate CAP* 100 MG PO SCH (08:17)
[2018-04-27] MEDS: Omeprazole CAP* 20 MG PO SCH (08:17)
[2018-04-27] MEDS: oxyCODONE/Acetamin 5/325 MG* TAB PO PRN (08:18)
[2018-04-27] MEDS: Magnesium Hydroxide LIQ* 30 ML UDC PO SCH (08:20)
--- NOTE | 2018-04-27 08:29 | RAD ---
Indication: Desaturation and hypoxia. Single frontal view of the chest performed at 0755 hours was reviewed. Comparison is made with previous exam dated April 16, 2018. No mediastinal shift is noted. Heart is of normal size and configuration. Lung dwyer appear clear. IMPRESSION: NO ACTIVE CARDIOPULMONARY DISEASE IS NOTED.
--- NOTE | 2018-04-27 10:51 | PN ---
Subjective Date of Service: 04/27/18 Interval History: Feels good today, anxious to get home but we were asked to re-consult due to hypoxia--once yesterday morning after a dose of morphine and once last night. Ms. Holden reports that both of these times she was dozing off. She has no shortness of breath, no dyspnea on exertion, no orthopnea. She sleeps on one pillow. Before surgery, she was able to walk up a flight of stairs or a city block and has never been limited by shortness of breath or chest pain. Her says she snores. Objective Active Medications: Acetaminophen (Tylenol Tab*) 975 mg PO Q8H [facility] Last Admin: 04/27/18 03:37 Dose: 975 mg Bisacodyl (Dulcolax Supp*) 10 mg [place] DAILY PRN PRN Reason: constipation Cyclobenzaprine HCl (Flexeril Tab*) 10 mg PO TID PRN PRN Reason: SPASMS Last Admin: 04/25/18 06:11 Dose: 10 mg Diphenhydramine HCl (Benadryl Iv*) 12.5 mg IV Q6H PRN PRN Reason: PRURITIS Docusate Sodium (Colace Cap*) 100 mg PO BID [facility] Last Admin: 04/27/18 08:17 Dose: 100 mg Enoxaparin Sodium (Lovenox(*)) 40 mg SUBCUT Q24H [facility] Last Admin: 04/26/18 11:28 Dose: 40 mg Lactated Ringer's (Lactated Ringers 1000 Ml Bag*) 1,000 mls @ 100 mls/hr IV PER RATE [facility] Last Admin: 04/25/18 01:56 Dose: 100 mls/hr Lactulose (Lactulose*) 30 ml PO Q6H PRN PRN Reason: constipation Lisinopril (Prinivil Tab*) 20 mg PO DAILY [facility] Last Admin: 04/27/18 08:17 Dose: 20 mg Magnesium Hydroxide (Milk Of Magnesia Liq*) 30 ml PO BID [facility] Last Admin: 04/27/18 08:20 Dose: Not Given Magnesium Hydroxide (Milk Of Magnesia Liq*) 30 ml PO Q6H PRN PRN Reason: constipation Morphine Sulfate (Morphine Inj ((Syringe))*) 2 mg IV Q2H PRN PRN Reason: PAIN Last Admin: 04/26/18 03:47 Dose: 2 mg Omeprazole (Prilosec Cap*) 20 mg PO DAILY@0730 [facility] Last Admin: 04/27/18 08:17 Dose: 20 mg Ondansetron HCl (Zofran Inj*) 4 mg IV Q6H PRN PRN Reason: nausea Last Admin: 04/26/18 03:47 Dose: 4 mg Ondansetron HCl (Zofran Tab*) 4 mg PO Q6H PRN PRN Reason: NAUSEA Last Admin: 04/26/18 10:48 Dose: 4 mg Oxycodone HCl (Roxycodone Tab*) 10 mg PO Q4H PRN PRN Reason: SEVERE PAIN Last Admin: 04/26/18 22:11 Dose: 10 mg Oxycodone/Acetaminophen (Percocet 5/325 Tab*) 1 tab PO Q4H PRN PRN Reason: PAIN Last Admin: 04/25/18 12:17 Dose: 1 tab Oxycodone/Acetaminophen (Percocet 5/325 Tab*) 2 tab PO Q4H PRN PRN Reason: PAIN Last Admin: 04/27/18 08:18 Dose: 2 tab Pharmacy Profile Note (Coumadin Daily Reminder*) 1 note FOLLOW UP 1700 [facility] Last Admin: 04/26/18 17:24 Dose: 1 note Polyethylene Glycol/Electrolytes (Miralax*) 17 gm PO DAILY PRN PRN Reason: Constipation Prochlorperazine Edisylate (Compazine Inj*) 10 mg IV Q6H PRN PRN Reason: NAUSEA/VOMITING Vital Signs - 8 hr 04/27/18 04/27/18 04/27/18 03:38 03:39 03:45 Temperature 97.8 F Pulse Rate 71 Respiratory 17 17 18 Rate Blood Pressure 113/55 (mmHg) O2 Sat by Pulse 96 Oximetry 04/27/18 04/27/18 04/27/18 07:20 08:00 08:18 Temperature 98.0 F Pulse Rate 68 Respiratory 18 18 18 Rate Blood Pressure 125/60 (mmHg) O2 Sat by Pulse 98 98 Oximetry Oxygen Devices in Use Now: Nasal Cannula Appearance: alert, well appearing, breathing comfortably Eyes: No Scleral Icterus Ears/Nose/Mouth/Throat: NL Teeth, Lips, Gums Neck: NL Appearance and Movements; NL JVP Respiratory: Symmetrical Chest Expansion and Respiratory Effort, Clear to Auscultation Cardiovascular: NL Sounds; No Murmurs; No JVD, RRR Abdominal: NL Sounds; No Tenderness; No Distention Lymphatic: No Cervical Adenopathy Extremities: No Edema, - - right knee with cryo-unit, immobilized. distal pulses 2+ Skin: No Rash or Ulcers Neurological: Alert and Oriented x 3 Result Diagrams: 04/27/18 05:14 04/25/18 05:57 Assess/Plan/Problems-Billing Assessment: Mrs. Dumont is a 58 female with a PMH of HTN, Obesity, GERD, GOUT, Psoriasis who underwent an elective right knee arthroplasty on 04/[address] Sheth. Hospital Medicine was asked to co-medical manage. - Patient Problems (1) Hypoxia Current Visit: Yes Status: Acute Code(s): R09.02 - HYPOXEMIA SNOMED Code(s ): 689224644 Comment: Only has occurred when dozing off (and after morphine) and no shortness of breath, no orthopnea, no chest pain. CXR is unremarkable with no effusions, infiltrates, or edema. She has good exercise capacity at baseline and no underlying lung disease, no smoking history, no asthma history. Her STOPBANG score for SHIN screening puts her at HIGH RISK for SHIN. I suspect this contributed to her hypoxia when sleeping. I discussed this with her and suggested that she request a sleep study from her PCP. She and her understand and agree. (2) HTN (hypertension) Current Visit: Yes Status: Acute Code(s): I10 - ESSENTIAL (PRIMARY) HYPERTENSION SNOMED Code(s): 95041938 Comment: controlled. continue home dose lisinopril (3) Status post total right knee replacement Current Visit: Yes Status: Acute Code(s): Z96.651 - PRESENCE OF RIGHT ARTIFICIAL KNEE JOINT SNOMED Code(s): 4849428604975 (4) Obesity Current Visit: Yes Status: Chronic Code(s): E66.9 - OBESITY, UNSPECIFIED SNOMED Code(s): 360605024 Comment: BMI 44.3 Status and Disposition: inpatient. Dispo per Orth. Hospital medicine is signing off, patient blood pressures are stable.
--- NOTE | 2018-04-27 11:53 | PN ---
Progress Note - Progress Note Date of Service: 04/27/18 SOAP: Subjective: Pt sitting comfortably in chair. No complaint of pain. Denies CP, SOB, F/C, N/V Vital Signs: Temp Pulse Resp BP Pulse Ox 98.0 F 68 18 125/60 98 04/27/18 07:20 04/27/18 07:20 04/27/18 08:18 04/27/18 07:20 04/27/18 08:00 Laboratory Last Values Hgb 11.6 g/dl (12.0-16.0) L 04/27/18 05:14 Hct 34 % (35-47) L 04/27/18 05:14 Plt Count 204 10^3/ul (150-450) 04/27/18 05:14 MPV 9.4 um3 (7.4-10.4) 04/27/18 05:14 INR (Anticoag Therapy) 1.14 (0.77-1.02) H 04/27/18 05:14 Sodium 134 mmol/L (135-145) L 04/25/18 05:57 Potassium 4.0 mmol/L (3.5-5.0) 04/25/18 05:57 Chloride 100 mmol/L (101-111) L 04/25/18 05:57 Carbon Dioxide 25 mmol/L (22-32) 04/25/18 05:57 Anion Gap 9 mmol/L (2-11) 04/25/18 05:57 BUN 9 mg/dL (6-24) 04/25/18 05:57 Creatinine 0.54 mg/dL (0.51-0.95) 04/25/18 05:57 Est GFR ( Amer) 139.3 (>60) 04/25/18 05:57 Est GFR (Non-Af Amer) 115.2 (>60) 04/25/18 05:57 BUN/Creatinine Ratio 16.7 (8-20) 04/25/18 05:57 Glucose 122 mg/dL (70-100) H 04/25/18 05:57 Calcium 8.8 mg/dL (8.6-10.3) 04/25/18 05:57 Objective: Dressing C/D/I. Calves soft, nontender. 2+ DP pulses. Sensation intact to light touch distally. Assessment: 58 yo female s/p right TKA POD #3 Plan: OOB PT/OT Pain control DVT prophylaxis - coumadin 8mg today Medically stable for D/C. Appreciate hospitalist input D/C Home today
[2018-04-27 12:08] VITALS: BP 122/51
[2018-04-27] MEDS: Enoxaparin(*) 40 MG/0.4 ML SYR SUBCUT SCH (12:21)
[2018-04-27] MEDS: oxyCODONE TAB* 5 MG TAB PO PRN (12:27)
--- NOTE | 2018-04-28 01:15 | DS ---
AMENDED REPORT NOW INLCUDES COSIGNER DESIGNATION - ESIGNED BEFORE ADJUSTMENT DISCHARGE SUMMARY: DATE OF ADMISSION: 04/24/18 DATE OF DISCHARGE: 04/27/18 ATTENDING PHYSICIAN: Dr. Julieta Sheth.* (DICTATED BY KAILEE GREENE) PRINCIPAL DIAGNOSIS: Right knee osteoarthritis, end stage. SECONDARY DIAGNOSES: 1. Psoriasis. 2. Hypertension. 3. Gout. PRINCIPAL PROCEDURE: Right total knee replacement. REASON FOR HOSPITALIZATION: Ms. Holden is a 57-year-old female with longstanding history of right knee pain due to end-stage right knee osteoarthritis. She has failed conservative treatment and elected to proceed with right total knee arthroplasty, which was scheduled on 04/24/18, with Dr. Sheth. HOSPITAL COURSE: The patient was admitted to the hospital on 04/24/18, for anticipated right knee replacement. She underwent the surgery without any complications. She was transferred to the recovery room and subsequently the surgical stay unit in a stable condition. She participated in occupational therapy and physical therapy without any problems. Her vital signs remained stable other than when she did have a drop in O2 saturation. One was at night and one was soon after getting a dose of morphine. Hospitalist was consulted. A chest x-ray was ordered. Chest x-ray was negative for cardiac or pulmonary issues. The patient was medically cleared by the hospitalist team. The patient had daily hemoglobin and hematocrit draws. The hemoglobin was 11.6 and hematocrit was 34 on the day of discharge. Daily INRs were drawn, her INR was 1.14 on the day of discharge. The patient had no other issues. Pain control was met with oxycodone and her pain was well controlled. She was discharged on 04/27/18 to home in a stable condition. DISCHARGE INSTRUCTIONS: Weightbearing as tolerated. Wound care, okay to shower on postop day #3. No bathing, swimming, submerging wound. Use gentle soap, pat dry, cover with gauze, Aj wrap and/or tape. Call orthopedic office for increased drainage, redness, increased pain or fever, go to the ER with shortness of breath or chest pain. DIET: Regular diet, increase fluids and fiber to prevent constipation. Continue to use stool softeners, call office if no bowel movement within 48 hours. Continue physical therapy and occupational therapy exercises as shown. Visiting home nurse to do wound checks. Visiting home nurse to draw blood work for INR on Monday and . Coumadin dosing: Take 8 mg today on 04/27/18 , then take 6 mg on Monday and Monday. Redraw INR on Monday. Pain control with Percocet 5/325 mg 1 to 2 tabs by mouth every 4 to 6 hours as needed for pain. Antibiotics are required prior to any dental work. Follow up with Dr. Sheth within 10 to 14 days. Call the office for any questions or concerns and to set up an appointment at [phone]. KAILEE GREENE [id number]/[facility] #: [id number] [facility] CENTERJo-Ann
== END 2018-04-27 13:10 | disposition home health service (06) | DRG 302 ==
LOC: AA 06:33 → SSU 12:34
PROVIDERS: ADMIT Orthopaedic Surgery Adult Reconstructive Orthopaedic Surgery; ATTEND Orthopaedic Surgery Adult Reconstructive Orthopaedic Surgery
PROC: 0SRC069 Replacement of Right Knee Joint with Oxidized Zirconium on Polyethylene Synthetic Substitute, Cemented, Open Approach (ICD-10-PCS; principal; 2018-04-24 08:00)
DX: M17.11 Unilateral primary osteoarthritis, right knee (principal); Z68.41 Body mass index [BMI] 40.0-44.9, adult; I10 Essential (primary) hypertension; M10.9 Gout, unspecified; M25.461 Effusion, right knee; E66.9 Obesity, unspecified; K75.81 Nonalcoholic steatohepatitis (NASH); E78.5 Hyperlipidemia, unspecified; K21.9 Gastro-esophageal reflux disease without esophagitis; M25.761 Osteophyte, right knee; M85.861 Other specified disorders of bone density and structure, right lower leg; R73.01 Impaired fasting glucose; L40.9 Psoriasis, unspecified; Z90.49 Acquired absence of other specified parts of digestive tract; Z88.2 Allergy status to sulfonamides; Z80.0 Family history of malignant neoplasm of digestive organs; Z82.49 Family history of ischemic heart disease and other diseases of the circulatory system; Z80.51 Family history of malignant neoplasm of kidney; Z83.3 Family history of diabetes mellitus; Z83.6 Family history of other diseases of the respiratory system; R09.02 Hypoxemia; R11.2 Nausea with vomiting, unspecified
CPT/HCPCS: 36415; 71045; 80048; 85014; 85018; 85049; 85610; 88305; 88311; A9270-GY; C1776; G8987-GO-CJ; G8988-GO-CJ; G8989-GO-CJ; J0690; J1170; J1650; J2250; J2270; J2405; J2704; J3010

== ENCOUNTER 2018-09-07 17:06 | Emergency (ER) | payer OTHER ==
[2018-09-07 17:47] VITALS: BP 146/100
--- NOTE | 2018-09-07 18:10 | UC ---
Complaint Female HPI - HPI Summary HPI Summary: 58 y/o female presents to the urgent care c/o burning and frequency on urination since last night. Pt reports pain on urination is 3/10 w/ mild lower back pain today. Pt has not taking anything to alleviate symptoms. Pt denies flank pain, fever, vaginal discharge, pelvic pain, abdominal pain, N/v/d. JONES or dizziness. Pt states Hx of HTN. 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 Negative: Fever, Vaginal Bleeding/Discharge, Vaginal Discharge, Nausea, Vomiting (# Of Episodes =), Genital Swelling, Genital Blisters - Risk Factors Ectopic Risk Factor: Negative Ovarian Torsion Risk Factor: Negative - Allergies/Home Medications Allergies/Adverse Reactions: Allergies Allergy/AdvReac Type Severity Reaction Status Date / Time Sulfa (Sulfonamide Allergy Unknown Verified 09/07/18 17:48 Antibiotics) Reaction Details Home Medications: Home Medications Adalimumab (NF) [Humira Pen (NF)] 40 mg SC SEE INSTRUCTIONS 09/07/18 [History Confirmed 09/07/18] Ibuprofen TAB* [Motrin TAB* 600 MG] 600 mg PO Q6H PRN 09/07/18 [History Confirmed 09/07/18] PMH/Surg Hx/FS Hx/Imm Hx Previously Healthy: Yes Cardiovascular History: Hypertension GI/ History: Gastroesophageal Reflux - Surgical History Surgical History: Yes Surgery Procedure, Year, and Place: right knee replacement. gallbladder . c section x2. d/C for miscarriage - - Family History Known Family History: Positive: None Negative: Cardiac Disease, Hypertension, Diabetes - Social History Occupation: Unemployed Lives: With Family Alcohol Use: None Substance Use Type: None Smoking Status (MU): Never Smoked Tobacco - Immunization History Most Recent Influenza Vaccination: 2016 Most Recent Tetanus Shot: UTD Most Recent Pneumonia Vaccination: never Review of Systems All Other Systems Reviewed And Are Negative: Yes Constitutional: Positive: Negative Skin: Positive: Negative Eyes: Positive: Negative ENT: Positive: Negative Respiratory: Positive: Negative Cardiovascular: Positive: Negative Gastrointestinal: Positive: Negative Genitourinary: Positive: Dysuria, Frequency, Urgency Motor: Positive: Negative Neurovascular: Positive: Negative Musculoskeletal: Positive: Negative Neurological: Positive: Negative Psychological: Positive: Negative Is Patient Immunocompromised?: No Physical Exam - Summary Physical Exam Summary: VITAL SIGNS: Reviewed. GENERAL: Patient is a well developed and nourished obese female who is sitting comfortable in the examining table. Patient is not in any acute respiratory distress. HEAD AND FACE: No signs of trauma. No ecchymosis, hematomas or skull depressions. No sinus tenderness. EYES: PERRLA, EOMI x 2, No injected conjunctiva, clear watery eyes, no nystagmus. No photophobia. EARS: Hearing grossly intact. Ear canals and tympanic membranes are within normal limits. MOUTH: pharynx with no erythema, no exudates,no palatal petechiae. no B/L tonsillar enlargement Uvula in midline. NECK: Supple, trachea is midline, no lymphadenopathy, no JVD, no carotid bruit, no c-spine tenderness, neck with full ROM. CHEST: Symmetric, no tenderness at palpation LUNGS: Clear to auscultation bilaterally. No wheezing or crackles. CVS: Regular rate and rhythm, S1 and S2 present, no murmurs or gallops appreciated. ABDOMEN: Soft, non-tender. No signs of distention. No rebound no guarding, and no masses palpated. Bowel sounds are normal. BACK:no scoliosis or lesions, non tender to palpation, No B/L CVA tenderness EXTREMITIES: FROM in all major joints, no edema, no cyanosis or clubbing. NEURO: Alert and oriented x 3. No acute neurological deficits. Speech is normal and follows commands. SKIN: Dry and warm Triage Information Reviewed: Yes Vital Signs: Initial Vital Signs Temp 99.0 F 09/07/18 17:43 Pulse 85 09/07/18 17:43 Resp 16 09/07/18 17:43 BP 146/100 09/07/18 17:43 Pulse Ox 98 09/07/18 17:43 Complaint Female Dx - Course Course Of Treatment: 58 y/o female presents to the urgent care c/o burning and frequency on urination since last night. Pt reports pain on urination is 3/10 w / mild lower back pain today. Pt has not taking anything to alleviate symptoms. Pt denies flank pain, fever, vaginal discharge, pelvic pain, abdominal pain, N/v /d. JONES or dizziness. Pt states Hx of HTN. Hx obtained. PE: WNL, no CVA tenderness B/L. UA ordered. UA results: negative. Pt Rx Pyridium 100mg PO TID x 2 days. Advised to increase fluid intake. Pt advised If symptoms do not improve to return to the urgent care or f/u with PCP. Pt's BP is elevated today advised to decrease salt in diet, monitor BP and f/u with PCP for further management. Pt understood and agreed. Left the clinic ambulating. - Differential Dx/Diagnosis Differential Diagnosis/HQI/PQRI: Cervicitis, Renal Colic, Ureteral Stone, Urinary Tract Infection Provider Diagnosis: Dysuria, Uncontrolled hypertension Discharge - Sign-Out/Discharge Documenting (check all that apply): Patient Departure - d/c home All imaging exams completed and their final reports reviewed: No Studies - Discharge Plan Condition: Stable Disposition: HOME Prescriptions: Phenazopyridine TAB* [Pyridium 100 mg TAB*] 100 mg PO TID #6 tab Patient Education Materials: Dysuria (ED), Low-Sodium Diet (ED) Referrals: Frances Tyler MD [Primary Care Provider] - 2 Days Additional Instructions: 1-Please take Pyridium 100 mg PO TID x 2 days to alleviate urinary symptoms. Increase increase fluid intake. drink cranberry juice. 2-UA is completely negative 3-If symptoms do not improve please return to the urgent care or f/u with her PCP. 4-Your BP is elevated today. please decrease salt in your diet, monitor BP and if it continues to be elevated please f/u with your PCP for further management - Billing Disposition and Condition Condition: STABLE Disposition: Home - Attestation Statements Provider Attestation: I was available for consult. This patient was seen by the LEIDA. The patient was not presented to, seen by, or examined by me. -Jarocho
== END 2018-09-07 19:04 | disposition home or self-care (01) ==
LOC: UCEAST 17:06
DX: R30.0 Dysuria (principal); I10 Essential (primary) hypertension; R35.0 Frequency of micturition
CPT/HCPCS: 81003; 99212; G0463